=== PATIENT | female | born 1990 | race Native Hawaiian/Other Pacific Islander ===

== ENCOUNTER 2017-11-11 08:16 | Emergency (ER) | payer OTHER ==
[2017-11-11 08:22] VITALS: BMI 21.4
[2017-11-11] MEDS ORDERED: Sodium Chloride 0.9% 1,000 ML IV STA (08:36)
--- NOTE | 2017-11-11 08:39 | ED PDOC ---
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 with pelvic pain like period cramping. Started 2 hrs fishing boat captain. Pt. with no dysuria, weakness, other abd pain, chest pain, dyspnea, back pain, nausea, vomit , diarrhea, or other issues. Past Medical History Reviewed: Nursing Documentation, Vital Signs Vital Signs: Last Vital Signs Temp 97.9 F 11/11/17 08:21 Pulse 69 11/11/17 08:21 Resp BP 111/71 11/11/17 08:21 Pulse Ox 99 11/11/17 08:21 - Medical History PMH: No Chronic Diseases - Surgical History Surgical History: No Surg Hx - Family History Family History: States: Unknown Family Hx - Living Arrangements Living Arrangements: With Family - Home Medications Home Medications: Ambulatory Orders Medication Instructions Recorded Ibuprofen [Motrin] 600 mg PO TID 7 Days tab 11/11/17 - Allergies Allergies/Adverse Reactions: Allergies Allergy/AdvReac Type Severity Reaction Status Date / Time No Known Allergies Allergy Verified 02/03/16 16:17 Review of Systems ROS Statement: Except As Marked, All Systems Reviewed And Found Negative Genitourinary Female: Positive for: Pelvic Pain Physical Exam - Reviewed Nursing Documentation Reviewed: Yes Vital Signs Reviewed: Yes - Physical Exam Appears: Positive for: Non-toxic, No Acute Distress Head Exam: Positive for: ATRAUMATIC, NORMAL INSPECTION, NORMOCEPHALIC Skin: Positive for: Normal Color, Warm, DRY Eye Exam: Positive for: EOMI, Normal appearance, PERRL ENT: Positive for: Normal ENT Inspection Neck: Positive for: Normal, Painless ROM Cardiovascular/Chest: Positive for: Regular Rate, Rhythm Respiratory: Positive for: CNT, Normal Breath Sounds Gastrointestinal/Abdominal: Positive for: Soft, Tenderness (across lower pelvic) Back: Positive for: Normal Inspection. Negative for: L CVA Tenderness, R CVA Tenderness Extremity: Positive for: Normal ROM. Negative for: Tenderness Neurologic/Psych: Positive for: Alert, Oriented - Laboratory Results Result Diagrams: 11/11/17 08:40 11/11/17 08:40 Interpretation Of Abn Labs: no acute Urine POC: Negative Urine dip results: Negative for: Nitrate - ECG O2 Sat by Pulse Oximetry: 99 - Progress ED Course And Treament: Large left ovarian complex cyst with internal echoes and papillary projections measuring 7.4 x 6.6 x 5.6 cm. Malignancy is not excluded. Dr. Graf aware and saw pt. 1500: Dr. Graf discussed with pt. possible surgery today vs. scheduling outpt. Pain controlled. AAOx3. Pt. does not want to get surgery today. She wants to go home. Tolerated po. Fu with pcp. Disposition - Clinical Impression Clinical Impression: Ovarian cyst - Patient ED Disposition Is Patient to be Admitted: No Counseled Patient/Family Regarding: Studies Performed, Diagnosis, Need For Followup, Rx Given - Disposition Referrals: Stewart Graf DO [Staff Provider] - 11/14/17 Disposition: Routine/Home Disposition Time: 15:25 Condition: STABLE Additional Instructions: Return if not better in 3 days. Prescriptions: Ibuprofen [Motrin] 600 mg PO TID 7 Days tab Instructions: Ovarian Cysts Forms: [facility] ([place]), [facility] ED School/Work Excuse
[2017-11-11] MEDS ORDERED: Morphine 4 MG/ML VIAL ONE (09:08)
[2017-11-11 09:21] LABS: BASO # 0.1 K/uL (0.0-0.2); EOS # 0.5 K/uL (0.0-0.7); EOS % 6.5 % (0.0-4.0); LYMPH # 1.5 K/uL (1.0-4.3); LYMPH % 20.1 % (20.0-40.0); MEAN CELL VOLUME 88.4 fl (81.0-99.0); MEAN CORPUSCULAR HEMOGLOBIN 29.9 pg (27.0-31.0); MEAN CORPUSCULAR HGB CONC 33.9 g/dL (33.0-37.0); MEAN PLATELET VOLUME 8.9 fl (7.2-11.7); MONO # 0.4 K/uL (0.0-0.8); MONO % 5.2 % (0.0-10.0); NEUT # 4.9 K/uL (1.8-7.0); NEUT % 67.2 % (50.0-75.0); NRBC % 0.1 % (0.0-0.0); RBC 4.34 Mil/uL (3.80-5.20); RED CELL DISTRIBUTION WIDTH 14.1 % (11.5-14.5); WHITE BLOOD COUNT 7.3 K/uL (4.8-10.8)
[2017-11-11 09:27] LABS: BLOOD UREA NITROGEN 15 mg/dl (7-17); CALCIUM 9.4 mg/dL (8.4-10.2); GFR AFRICAN-AMERICAN > 60; GFR NON-AFRICAN AMERICAN > 60
--- NOTE | 2017-11-11 11:46 | US ---
HISTORY: pelvic pain eval COMPARISON: None available. TECHNIQUE: Grayscale color Doppler and spectral evaluation of the pelvis performed transabdominally FINDINGS: UTERUS: Measures 8.2 x 5.0 x 4.0 cm. Anteverted. Normal in size and appearance. No fibroid or other mass lesion seen. ENDOMETRIUM: Measures 4 mm in diameter. Unremarkable. CERVIX: No cervical abnormality identified. RIGHT OVARY: Measures 2.9 x 3.4 x 2.5 cm. No solid mass. Normal flow. LEFT OVARY: Measures 8.6 x 9.9 x 5.3 cm. Complex cyst with internal echoes and papillary projections measuring 7.4 x 6 6 x 5.6 cm. Normal flow. FREE FLUID: No significant free fluid noted. OTHER FINDINGS: None. IMPRESSION: Large left ovarian complex cyst with internal echoes and papillary projections measuring 7.4 x 6.6 x 5.6 cm. Malignancy is not excluded.
--- NOTE | 2017-11-11 15:12 | CT ---
PROCEDURE: CT Pelvis without contrast HISTORY: ovarian cyst vs. mass COMPARISON: Pelvic ultrasound performed earlier the same day. TECHNIQUE: Contiguous axial images of the pelvis . No intravenous or oral contrast given. Coronal and sagittal reformats generated. Radiation dose: Total exam DLP = 230.3 MGy-cm. This CT exam was performed using one or more of the following dose reduction techniques: Automated exposure control, adjustment of the mA and/or kV according to patient size, and/or use of iterative reconstruction technique. FINDINGS: BLADDER: Unremarkable. No mass. REPRODUCTIVE ORGANS: As seen on ultrasound, there is a complex, heterogeneous structure in the pelvis measuring 7.0 x 6.6 x 8.0 cm that cannot be characterized as a simple cyst. Small amount of free fluid is seen in the recto uterine pouch VISUALIZED BOWEL: Unremarkable. PERITONEUM: Unremarkable, as visualized. No free fluid. No free air. LYMPH NODES: Unremarkable. No enlarged lymph nodes. BONES: No fracture or focal lesion. VASCULATURE: Unremarkable. OTHER FINDINGS: None. IMPRESSION: Large complex heterogeneous pelvic mass measuring 7.0 x 6.6 x 8.0 cm.
--- NOTE | 2017-11-11 15:14 | CP.PCM.CON ---
History of Present Illness - History of Present Illness History of Present Illness: c/o left pelvic pain x 1d. She states that it's on and off. Left side/non radiating. She was given pain meds in ER and feels better Review of Systems - Constitutional Constitutional: absent: Chills, Fever - Gastrointestinal Gastrointestinal: Abdominal Pain. absent: Belching, Bloating, Change in Bowel Habits, Cramping, Diarrhea, Nausea, Vomiting - Genitourinary Genitourinary: absent: Change in Urinary Stream, Difficulty Urinating, Dysuria, Urinary Frequency, Urinary Urgency - Reproductive: Female Reproductive:Female: Normal Menses. absent: Vaginal Discharge Additional comments: LMP 1 week ago Past Patient History - Infectious Disease Hx of Infectious Diseases: None - Past Social History Smoking Status: Never Smoked Chewing Tobacco Use: No Cigar Use: No Alcohol: None Drugs: Denies - PSYCHIATRIC Hx Substance Use: No - SURGICAL HISTORY Hx Surgeries: No Meds Home Medications: Home Medication List Medication Instructions Recorded Confirmed Type Ibuprofen [Motrin] 600 mg PO TID 7 Days tab 11/11/17 Rx Allergies/Adverse Reactions: Allergies Allergy/AdvReac Type Severity Reaction Status Date / Time No Known Allergies Allergy Verified 02/03/16 16:17 Physical Exam - Constitutional Appears: Non-toxic - Head Exam Head Exam: NORMAL INSPECTION - Respiratory Exam Respiratory Exam: NORMAL BREATHING PATTERN - Cardiovascular Exam Cardiovascular Exam: REGULAR RHYTHM - GI/Abdominal Exam GI & Abdominal Exam: Normal Bowel Sounds, Soft, Tenderness. absent: Distended, Guarding, Rebound - Exam Additional comments: Declined - Back Exam Back exam: NORMAL INSPECTION Results - Vital Signs Recent Vital Signs: Last Vital Signs Temp 98.3 F 11/11/17 11:56 Pulse 66 11/11/17 11:56 Resp 16 11/11/17 11:56 BP 112/68 11/11/17 11:56 Pulse Ox 99 11/11/17 12:43 - Labs Result Diagrams: 11/11/17 08:40 11/11/17 08:40 Labs: Laboratory Results - last 24 hr 11/11/17 11/11/17 08:40 08:40 WBC 7.3 RBC 4.34 Hgb 13.0 Hct 38.3 MCV 88.4 MCH 29.9 MCHC 33.9 RDW 14.1 Plt Count 249 MPV 8.9 Neut % (Auto) 67.2 Lymph % (Auto) 20.1 [place] % (Auto) 5.2 Eos % (Auto) 6.5 H Baso % (Auto) 1.0 Neut # (Auto) 4.9 Lymph # (Auto) 1.5 [place] # (Auto) 0.4 Eos # (Auto) 0.5 Baso # (Auto) 0.1 Sodium 139 Potassium 3.6 Chloride 104 Carbon Dioxide 28 Anion Gap 11 BUN 15 Creatinine 0.5 L Est GFR ( Amer) > 60 Est GFR (Non-Af Amer) > 60 Random Glucose 89 Calcium 9.4 Assessment & Plan - Assessment and Plan (Free Text) Assessment: Ovarian cyst - possible endometrioma/dermoid (sono) Pelvic pain - improved with pain meds Plan: condition explained with her friend present. Sonogram rev'd with specialists - Dr Quintero and Dr Schaffer..plan to admit for laparoscopy/possible Da Mikie assisted cystectomy/Salpingo-oophorectomy...possibility of laparotomy discussed. After she and her friend had a discussion, she did not want surgery at this time. She felt better, had an exam tomorrow and wanted to come back as an outpatient (schedule surgery). She understands about pelvic mass/ovarian cyst/ possible torsion and its risks/complications. Advised if increased pain to come back to ER. Copy of radiology studies given to pt. Spoke with Dr Denis...may be discharged home (no evidence of torsion) - Date & Time Date: 11/11/17 Time: 15:30
[2017-11-11 15:49] VITALS: BP 122/75; PULSE 68; RESP 17; TEMP 98; O2SAT 100
== END 2017-11-11 15:40 | disposition home or self-care (01) ==
LOC: H.ER 08:16
DX: N83.209 Unspecified ovarian cyst, unspecified side (principal)
CPT/HCPCS: 72192; 76857; 80048; 81025; 85025; 96361; 96374; 96375; 99285; J1885; J2270; J7030

== ENCOUNTER 2017-11-23 18:00 | Inpatient (IN) | payer OTHER ==
[2017-11-23 18:01] VITALS: BMI 21.4
--- NOTE | 2017-11-23 18:36 | ED PDOC ---
HPI: Female Pain Time Seen by Provider: 11/23/17 18:31 Chief Complaint (Nursing): Female Genitourinary Chief Complaint (Provider): left lower abdominal pain History Per: Patient (26 y/o female here with complaint of intermittent left lower quadrant pain worsening today. Symptoms started 1 week ago. Denies any vomiting/diarrhea/fevers/chills. Has no h/o sx. Was seen last week in ED for similar symptoms by Dr. Graf and Dr. Cornell. Patient was supposed to f/u with Dr. cornell oupatient. Patient spoke with Dr. Cornell today and was advised to come to ED for evaluation. ) Past Medical History Reviewed: Historical Data, Nursing Documentation, Vital Signs Vital Signs: Last Vital Signs Temp 99.2 F 11/23/17 18:16 Pulse 88 11/23/17 18:16 Resp 16 11/23/17 18:16 BP 109/72 11/23/17 18:16 Pulse Ox 99 11/23/17 18:16 - Family History Family History: States: Unknown Family Hx - Home Medications Home Medications: Ambulatory Orders Medication Instructions Recorded Fluticasone Propionate [Flonase] 1 spray INH DAILY 11/23/17 - Allergies Allergies/Adverse Reactions: Allergies Allergy/AdvReac Type Severity Reaction Status Date / Time No Known Allergies Allergy Verified 11/23/17 18:16 Review of Systems ROS Statement: Except As Marked, All Systems Reviewed And Found Negative Physical Exam - Reviewed Nursing Documentation Reviewed: Yes Vital Signs Reviewed: Yes - Physical Exam Appears: Positive for: Well, Non-toxic, No Acute Distress Head Exam: Positive for: ATRAUMATIC, NORMAL INSPECTION, NORMOCEPHALIC Skin: Positive for: Normal Color, Warm, DRY Eye Exam: Positive for: EOMI, Normal appearance, PERRL ENT: Positive for: Normal ENT Inspection Neck: Positive for: Normal, Painless ROM Cardiovascular/Chest: Positive for: Regular Rate, Rhythm Respiratory: Positive for: CNT, Normal Breath Sounds Gastrointestinal/Abdominal: Positive for: Normal Exam, Soft Back: Positive for: Normal Inspection Extremity: Positive for: Normal ROM Neurologic/Psych: Positive for: Alert, Oriented - Laboratory Results Result Diagrams: 11/23/17 18:48 11/23/17 18:48 - ECG O2 Sat by Pulse Oximetry: 99 - Progress ED Course And Treament: Dr cornell spoke with varnish thinner [phone] Patient given morphine 4 mg iv x 1 dose zofran 4 mg iv x 1 dose for pain ADmitted to Dr. Cornell and prepped for OR Disposition - Clinical Impression Clinical Impression: Ovarian cyst - Patient ED Disposition Is Patient to be Admitted: Yes - Disposition Disposition Time: 20:08 Condition: FAIR - Pt Status Changed To: Hospital Disposition Of: Observation
[2017-11-23 18:53] LABS: BASO # 0.1 K/uL (0.0-0.2); BASO % 1.1 % (0.0-2.0); EOS # 0.5 K/uL (0.0-0.7); EOS % 8.2 % (0.0-4.0); HEMOGLOBIN 12.8 g/dL (12.0-16.0); LYMPH # 1.7 K/uL (1.0-4.3); LYMPH % 25.9 % (20.0-40.0); MEAN CELL VOLUME 88.5 fl (81.0-99.0); MEAN CORPUSCULAR HEMOGLOBIN 29.2 pg (27.0-31.0); MEAN PLATELET VOLUME 8.8 fl (7.2-11.7); MONO # 0.5 K/uL (0.0-0.8); MONO % 7.2 % (0.0-10.0); NEUT # 3.7 K/uL (1.8-7.0); NEUT % 57.6 % (50.0-75.0); NRBC % 0.1 % (0.0-0.0); RBC 4.37 Mil/uL (3.80-5.20); RED CELL DISTRIBUTION WIDTH 13.9 % (11.5-14.5); WHITE BLOOD COUNT 6.5 K/uL (4.8-10.8)
[2017-11-23 19:03] LABS: ALB/GLOB RATIO 1.3 (1.0-2.1); ALBUMIN 4.3 g/dL (3.5-5.0); ALT/SGPT 22 U/L (9-52); AST/SGOT 26 U/L (14-36); BLOOD UREA NITROGEN 20 mg/dl (7-17); CALCIUM 9.6 mg/dL (8.4-10.2); GFR AFRICAN-AMERICAN > 60; GFR NON-AFRICAN AMERICAN > 60
[2017-11-23 19:06] LABS: SQUAMOUS EPITHIAL 7 /hpf (0-5); URINE BILIRUBIN NEGATIVE (NEGATIVE); URINE BLOOD NEGATIVE (NEGATIVE); URINE CLARITY SLIGHTY-CLOUDY (Clear); URINE COLOR STRAW (YELLOW); URINE GLUCOSE (UA) NEG (Normal); URINE HYALINE CAST 0-2 /hpf (0-2); URINE LEUKOCYTE ESTERASE SMALL Leu/uL (Negative); URINE PROTEIN NEGATIVE (NEGATIVE); URINE UROBILINOGEN 0.2-1.0 mg/dL (0.2-1.0)
[2017-11-23] MEDS ORDERED: Dextrose 5%/0.45% NS 1,000 ML IV SCH (20:15)
[2017-11-23 21:06] LABS: PARTIAL THROMBOPLASTIN TIME 36.1 Seconds (25.6-37.1); PROTHROMBIN TIME 10.6 Seconds (9.8-13.1)
[2017-11-23] MEDS ORDERED: Peg-Electrolyte Oral Soln 4L (Golytely) PO ONE (21:41)
[2017-11-23] MEDS: Dextrose 5%/0.45% NS 1,000 ML IV SCH (22:06)
[2017-11-24] MEDS: Dextrose 5%/0.45% NS 1,000 ML IV SCH (06:51)
[2017-11-24] MEDS ORDERED: Bupivacaine HCl 0.5% PF (10 ml) Inj ONE (08:05)
[2017-11-24] MEDS ORDERED: Propofol 10 mg/ml Inj (20 ML) ONE (08:24)
[2017-11-24] MEDS ORDERED: Lidocaine 4% (Laryng-O-Jet) Kit MM ONE (08:24)
[2017-11-24] MEDS ORDERED: Midazolam 2 MG/2 ML VIAL ONE (08:24)
[2017-11-24] MEDS ORDERED: Succinylcholine 200 mg/10 ml Inj IV ONE (08:24)
[2017-11-24] MEDS ORDERED: ePHEDrine 50 mg/ml Inj ONE (08:24)
[2017-11-24] MEDS ORDERED: Rocuronium 10 mg/ml (5 ml) ONE (08:24)
[2017-11-24] MEDS ORDERED: Lactated Ringer's 1,000 ML IV ONE ×2 (08:35→08:40)
--- NOTE | 2017-11-24 08:38 | CP.PCM.HP ---
History of Present Illness - History of Present Illness History of Present Illness: 26 yo g0po presenting to the emergency room with severe abdominal pain , nausea. The patient had a prior admission 10 days prior for similar symprtoms. At the time a large pelvic mass was diagnosed by ct scan and ultrasound. A repeat ultrasound upon admission confirmed presence of the mass.At the time the patient was seen in the emergency room and admitted overnight. She was subsequently discharged home. Yesterday the patient started experiencing increasing pain and presented to the emergency room. Present on Admission - Present on Admission Any Indicators Present on Admission: No History of DVT/PE: No History of Uncontrolled Diabetes: No Urinary Catheter: No Decubitus Ulcer Present: No Review of Systems - Review of Systems Systems not reviewed;Unavailable: Acuity of Condition (severe) - Constitutional Constitutional: As Per HPI - EENT Eyes: absent: As Per HPI, Blind Spots, Blurred Vision, Change in Vision, Decreased Night Vision, Diplopia, Discharge, Dry Eye, Exophthalmos, Floaters, Irritation, Itchy Eyes, Loss of Peripheral Vision, Pain, Photophobia, Requires Corrective Lenses, Sees Flashes, Spots in Vision, Tunnel Vision, Other Visual Disturbances, Loss of Vision, Other Ears: absent: As Per HPI, Decreased Hearing, Ear Discharge, Ear Pain, Tinnitus, Abnormal Hearing, Disequilibrium, Dizziness, Other Nose/Mouth/Throat: absent: As Per HPI, Epistaxis, Nasal Congestion, Nasal Discharge, Nasal Obstruction, Nasal Trauma, Nose Pain, Post Nasal Drip, Sinus Pain, Sinus Pressure, Bleeding Gums, Change in Voice, Dental Pain, Dry Mouth, Dysphagia, Halitosis, Hoarsness, Lip Swelling, Mouth Lesions, Mouth Pain, Odynophagia, Sore Throat, Throat Swelling, Tongue Swelling, Facial Pain, Neck Pain, Neck Mass, Other - Breasts Breasts: absent: As Per HPI, Change in Shape, Mass, Pain, Nipple Discharge, Nipple Inversion, Skin Changes, Swelling, Other - Cardiovascular Cardiovascular: absent: As Per HPI, Acrocyanosis, Chest Pain, Chest Pain at Rest , Chest Pain with Activity, Claudication, Diaphoresis, Dyspnea, Dyspnea on Exertion, Edema, Irregular Heart Rhythm, Pain Radiating to Arm/Neck/Jaw, Leg Edema, Leg Ulcers, Lightheadedness, Orthopnea, Palpitations, Paroxysmal Nocturnal Dyspnea, Pedal Edema, Radiating Pain, Rapid Heart Rate, Slow Heart Rate, Syncope, Other - Respiratory Respiratory: absent: As Per HPI, Cough, Dyspnea, Hemoptysis, Dyspnea on Exertion , Wheezing, Snoring, Stridor, Pain on Inspiration, Chest Congestion, Excessive Mucous Production, Change in Mucous Color, Pain with Coughing, Other - Gastrointestinal Gastrointestinal: Abdominal Pain, Bloating, Nausea - Genitourinary Genitourinary: Flank Pain, Urinary Frequency - Reproductive: Female Reproductive:Female: Heavy Menses, Dysmenorrhea, Pelvic Pain - Menstruation Menstruation: Dysmenorrhea - Musculoskeletal Musculoskeletal: absent: As Per HPI, Abnormal Gait, Arthralgias, Atrophy, Back Pain, Deformity, Joint Swelling, Limited Range of Motion, Loss of Height, Muscle Cramps, Muscle Weakness, Myalgias, Neck Pain, Numbness, Radiating Pain into Limb, Stiffness, Tingling, Other - Integumentary Integumentary: absent: As Per HPI, Acne, Alopecia, Bleeding Lesions, Change in Hair, Change in Nails, Change in Pigmentation, Changing Lesions, Dry Skin, Erythema, Furuncle, Hirsutism, Lesions, New Lesions, Non-Healing Lesions, Photosensitivity, Pruritus, Rash, Skin Pain, Skin Ulcer, Sores, Striae, Swelling , Unusual Bruising, Wounds, Jaundice, Other - Neurological Neurological: absent: As Per HPI, Abnormal Gait, Abnormal Hearing, Abnormal Movements, Abnormal Speech, Behavioral Changes, Burning Sensations, Confusion, Convulsions, Disequilibrium, Dizziness, Numbness, Focal Weakness, Frequent Falls , Headaches, Lack of Coordination, Loss of Vision, Memory Loss, Paresthesias, Radicular Pain, Restless Legs, Sensory Deficit, Syncope, Tingling, Tremor, Vertigo, Weakness, Other Visual Disturbances, Other - Psychiatric Psychiatric: absent: As Per HPI, Abnormal Sleep Pattern, Anhedonia, Anxiety, Auditory Hallucinations, Behavioral Changes, Change in Appetite, Change in Libido, Confusion, Depression, Difficulty Concentrating, Hallucinations, Homicidal Ideation, Hopelessness, Irritability, Memory Loss, Mood Swings, Panic Attacks, Paranoia, Suicidal Ideation, Visual Hallucinations, Tactile Hallucinations, Other - Endocrine Endocrine: absent: As Per HPI, Change in Body Appearance, Change in Libido, Cold Intolorance, Deepening of Voice, Excessive Sweating, Fatigue, Flushing, Heat Intolorance, Increase in Ring/Shoe/Hat Size, Palpitations, Polydipsia, Polyphagia, Polyuria, Other - Hematologic/Lymphatic Hematologic: absent: As Per HPI, Easy Bleeding, Easy Bruising, Lymphadenopathy, Other Past Patient History - Infectious Disease Hx of Infectious Diseases: None - Tetanus Immunizations Tetanus Immunization: Unknown, Up to Date, >10 years Ago, Never Received Tetanus Vaccine, Allergy to Tetanus Vaccine, Refused - Past Medical History & Family History Past Medical History?: No - Past Social History Smoking Status: Never Smoked - CARDIAC Hx Cardiac Disorders: No Hx Angina: No Hx Atrial Fibrillation: No Hx Cardia Arrhythmia: No Hx Circulatory Problems: No Hx Congestive Heart Failure: No Hx Heart Attack: No Hx Heart Murmur: No Hx Heart Transplant: No Hx Hypercholesterolemia: No Hx Hypertension: No Hx Hypotension: No Hx Internal Defibrillator: No Hx Mitral Valve Prolapse: No Hx Pacemaker: No Hx Peripheral Edema: No Hx Peripheral Vascular Disease: No - PULMONARY Hx Respiratory Disorders: No - HEENT Hx HEENT Problems: No - RENAL Hx Chronic Kidney Disease: No - ENDOCRINE/METABOLIC Hx Endocrine Disorders: No - HEMATOLOGICAL/ONCOLOGICAL Hx Blood Disorders: No Hx AIDS: No Hx Human Immunodeficiency Virus (HIV): No - INTEGUMENTARY Hx Dermatological Problems: No - MUSCULOSKELETAL/RHEUMATOLOGICAL Hx Musculoskeletal Disorders: No Hx Falls: No - GASTROINTESTINAL Hx Gastrointestinal Disorders: No - GENITOURINARY/GYNECOLOGICAL Hx Genitourinary Disorders: No Hx Sexually Transmitted Disorders: Yes : 0 - PSYCHIATRIC Hx Psychophysiologic Disorder: No Hx Substance Use: No - SURGICAL HISTORY Hx Surgeries: No Other/Comment: polyps removed in the nose - ANESTHESIA Hx Anesthesia: No Hx Anesthesia Reactions: No Has any member of the family had a problem w/ anesthesia?: No Meds Allergies/Adverse Reactions: Allergies Allergy/AdvReac Type Severity Reaction Status Date / Time No Known Allergies Allergy Verified 11/23/17 18:16 Physical Exam - Constitutional Appears: In Acute Distress - Head Exam Head Exam: ATRAUMATIC, NORMAL INSPECTION, NORMOCEPHALIC - Eye Exam Eye Exam: EOMI, Normal appearance, PERRL Pupil Exam: absent: Fixed, Irregular, Miosis, Mydriatic, NORMAL ACCOMODATION, PERRL, Unequal - ENT Exam ENT Exam: absent: Mucous Membranes Dry, Mucous Membranes Moist, Normal Exam, Normal External Ear Exam, Normal Oropharynx, TM's Normal Bilaterally - Neck Exam Neck exam: Positive for: Normal Inspection - Respiratory Exam Respiratory Exam: Clear to Auscultation Bilateral, NORMAL BREATHING PATTERN - Cardiovascular Exam Cardiovascular Exam: REGULAR RHYTHM - GI/Abdominal Exam GI & Abdominal Exam: Tenderness Additional comments: guarding - Exam Exam: absent: Circumcision, NORMAL INSPECTION, Scrotal Swelling, Testicular Tenderness, Uretheral Discharge, Testicular Vertical Lie, Bladder Distension External exam: absent: Ecchymosis, Erythema, Lacerations, Lesions, NORMAL EXTERNAL EXAM, Swelling Speculum exam: absent: Cervical Discharge, Erythema, Foreign Body, Laceration, NORMAL SPECULUM EXAM, Tissue, Vaginal Bleeding, Vaginal Discharge Bimanual exam: Adenexal Mass, Uterine Tenderness Results - Vital Signs Recent Vital Signs: Last Vital Signs Temp 98.2 F 11/24/17 08:03 Pulse 69 11/24/17 08:03 Resp 18 11/24/17 08:03 BP 107/63 11/24/17 08:03 Pulse Ox 99 11/24/17 08:03 - Labs Result Diagrams: 11/23/17 18:48 11/23/17 18:48 Labs: Laboratory Results - last 24 hr 11/23/17 11/23/17 11/23/17 18:48 18:48 18:48 WBC 6.5 RBC 4.37 Hgb 12.8 Hct 38.7 MCV 88.5 MCH 29.2 MCHC 33.0 RDW 13.9 Plt Count 219 MPV 8.8 Neut % (Auto) 57.6 Lymph % (Auto) 25.9 [place] % (Auto) 7.2 Eos % (Auto) 8.2 H Baso % (Auto) 1.1 Neut # (Auto) 3.7 Lymph # (Auto) 1.7 [place] # (Auto) 0.5 Eos # (Auto) 0.5 Baso # (Auto) 0.1 PT INR APTT Sodium 141 Potassium 3.9 Chloride 106 Carbon Dioxide 25 Anion Gap 14 BUN 20 H Creatinine 0.5 L Est GFR ( Amer) > 60 Est GFR (Non-Af Amer) > 60 Random Glucose 89 Calcium 9.6 Total Bilirubin 0.4 AST 26 ALT 22 Alkaline Phosphatase 52 Total Protein 7.5 Albumin 4.3 Globulin 3.2 Albumin/Globulin Ratio 1.3 Urine Color Straw Urine Clarity Slighty-cloudy Urine pH 7.0 Ur Specific [place] 1.011 Urine Protein Negative Urine Glucose (UA) Neg Urine Ketones Negative Urine Blood Negative Urine Nitrate Negative Urine Bilirubin Negative Urine Urobilinogen 0.2-1.0 Ur Leukocyte Esterase Small Urine RBC (Auto) 1 Urine Microscopic WBC 3 Ur Squamous Epith Cells 7 H Hyaline Casts 0-2 Blood Type Antibody Screen BBK History Checked 11/23/17 11/23/17 20:43 20:43 WBC RBC Hgb Hct MCV MCH MCHC RDW Plt Count MPV Neut % (Auto) Lymph % (Auto) [place] % (Auto) Eos % (Auto) Baso % (Auto) Neut # (Auto) Lymph # (Auto) [place] # (Auto) Eos # (Auto) Baso # (Auto) PT 10.6 INR 1.0 APTT 36.1 Sodium Potassium Chloride Carbon Dioxide Anion Gap BUN Creatinine Est GFR ( Amer) Est GFR (Non-Af Amer) Random Glucose Calcium Total Bilirubin AST ALT Alkaline Phosphatase Total Protein Albumin Globulin Albumin/Globulin Ratio Urine Color Urine Clarity Urine pH Ur Specific [place] Urine Protein Urine Glucose (UA) Urine Ketones Urine Blood Urine Nitrate Urine Bilirubin Urine Urobilinogen Ur Leukocyte Esterase Urine RBC (Auto) Urine Microscopic WBC Ur Squamous Epith Cells Hyaline Casts Blood Type O POSITIVE Antibody Screen Negative BBK History Checked No verified bt Assessment & Plan - Assessment and Plan (Free Text) Assessment: acute abdominal pain,bladder pain, large pelvic mass, rule out ovarian endometrioma, rule out ovarian torsion , rule out cyst rupture, rule out bladder endometriosis, Plan: emergency exploratory laparoscopy , possible ovarian cystectomy possible bowel surgery , general surgical surgical consult - Date & Time Date: 11/24/17 Time: 06:00 Decision To Admit - Pt Status Changed To: Hospital Disposition Of: Inpatient - Admit Certification Admit to Inpatient:: After my assessment, the patient will require hospitalization for at least two midnights. This is because of the severity of symptoms shown, intensity of services needed, and/or the medical risk in this patient being treated as an outpatient. - . Bed Request Type: Med/Surg Admitting Physician: Dimitris Quintero
[2017-11-24] MEDS ORDERED: Dexamethasone 4 mg/1 ml ONE (09:05)
[2017-11-24] MEDS ORDERED: Desflurane Inhalation Anesthetic Liq (240 ml) ONE (09:52)
[2017-11-24] MEDS ORDERED: Neostigmine 1:1000 (1 mg/ml) Inj ONE (10:39)
--- NOTE | 2017-11-24 10:50 | US ---
HISTORY: R/O OVARIAN TORSION/RUPTURE LEFT ADNEXA LMP 10/27/2017. COMPARISON: 11/11/2017. TECHNIQUE: Transabdominal only. Real-time technique with 2D, duplex and color Doppler FINDINGS: UTERUS: Measures 3.5 x 5 x 8.1 cm. Normal in size and appearance. No fibroid or other mass lesion seen. ENDOMETRIUM: Measures twelve mm in diameter. Unremarkable. CERVIX: No cervical abnormality identified. RIGHT OVARY: Measures 2.5 x 3.6 x 4.3 cm. No solid mass. Normal flow. Multiple subcentimeter follicles. LEFT OVARY: Measures 6 x 7.8 x 8.7 cm. No solid mass. Normal flow. Complex cyst/ endometrioma unchanged compared to the prior study. FREE FLUID: Trace free fluid identified in the pelvis/cul de sac. OTHER FINDINGS: None. IMPRESSION: Complex mass left adnexa unchanged compared to the prior study 11/11/2017. Concordant results (preliminary interpretation) provided by [facility]. Procedure Completed: 19:33 November 23, 2017. Preliminary ([facility]) Report: Dictated and Authenticated: 21:14. Final Interpretation: 10:48.
[2017-11-24] MEDS: HYDROmorphone 0.5 mg/0.5 ml ISec IVP PRN ×4 (11:38→12:33)
[2017-11-24] MEDS: Lactated Ringer's 1,000 ML IV SCH ×2 (14:24→21:19)
--- NOTE | 2017-11-24 15:05 | PCM.OP ---
Operative Report - Operative Report Date of Surgery/Procedure: 11/24/17 Time of Surgery/Procedure: 08:00 Surgeon: Dr. Nasim Schaffer Dry Kiln Operator: Dr. Dimitris Quintero Anesthesia/Sedation: general/Dr. Brown Pre-Operative Diagnosis: abdominal pain and large ovarian tumor Post-Operative Diagnosis: same Indication for Surgery: as above Operative Findings: as above Procedure/Operation Description: 1-Appendectomy. Brief History: This 26 year old woman was brought to the operatoing room by Dr. Quintero for a large ovarian tumor and abdominal pain. She was admitted through the ED with unrelenting abdominal pain and was admitted approximately one week before with similar symptoms and findings. She was discharged and now retruns with exacerbaiting symptoms. Dr. Quintero requested intraoperative cosultation for the appendix. Description of the Procedure: The patient had already been brought to the operating room by Dr. Quintero (separate dictation Dr. Quintero). After taking control of the robotic console the appednix was retracted anteriorly and with the monopolar devise the messentery was dessicated to the level of the base. Using three endoloops the appendix was ligated and divided and sent to pathology as a separate specimen. The area was examined and hemostasis was deemed adeqaute. The operation was tehn turned over to Dr. Quintero (separate dictation). Estimated Blood Loss: 2 cc Complications: none Discharge & Condition: stable
[2017-11-24] MEDS ORDERED: Oxycodone/Acetaminophen 5/325 mg Tab PO PRN (20:56)
[2017-11-25] MEDS: Lactated Ringer's 1,000 ML IV SCH (04:12)
--- NOTE | 2017-11-25 08:15 | OP ---
PROCEDURE DATE: 11/24/17 SURGEON: Dimitris Quintero MD STATISTICAL GENETICIST: Nasim Schaffer MD, from General Surgery. PREOPERATIVE DIAGNOSES: 1. Pelvic pain. 2. Abdominal pain, acute. 3. Pelvic mass, rule out pelvic endometrioma vs dermoid cyst vs ovarian tumor 4. Rule out ovarian torsion. 5. Rule out subacute appendicitis. POSTOPERATIVE DIAGNOSES: 1. Pelvic pain. 2. Abdominal pain, acute. 3. Left ovarian tumor, mucinous.. 4. Intermittent ovarian torsion. 5. Subacute appendicitis. PROCEDURE PERFORMED: 1. Exam under anesthesia. 2. Cystoscopy with bilateral ureteral injection of dye, 3. Robotic da Mikie laparoscopy. 4. Robotic left oophorectomy and left salpingectomy; 5. to be dictated separately by Dr. Schaffer, a right appendectomy. COMPLICATIONS: None. ESTIMATED BLOOD LOSS: Minimal. ANESTHESIA: General endotracheal performed by . SPECIMENS: Ovary sent to pathology. 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 INDICATION FOR PROCEDURE: The patient is a 26-year-old newly on her second admission to the emergency room for abdominal pain. She had a prior assessment about 10 days prior to the current admission. She presented with similar symptoms. She had a prior CT scan and was evaluated by ultrasonography confirming the presence of a large ovarian mass on the left hand side about 7 cm in size. The ultrasound report had ap esumptive diagnosis had findings suggestive of endometrioma and possibly ovarian torsion. The patient was counseled with regards to the risks and benefits of the procedure. Since she is very young, she expressed the desire for ovarian preservation if possible. She understood the risks and benefits, and she agreed to an oophorectomy should that present to be necessary. She signed the consent and was taken to the OR. DESCRIPTION OF PROCEDURE: After adequate anesthesia was obtained, the patient was placed in the dorsal lithotomy position. She was prepped and draped, and the surgeons gowned and gloved. Given the presumptive diagnosis of extensive endometriosis, a cystoscopy was performed to confirm presence of endometriosis in the bladder. The bladder appeared to be free of any lesions. A 5 mL of IC-green were injected on each ureter, on the left and the right side in order to facilitate identification of the ureter with the da Dejon robot. At this point, after regowning and regloving, the attention was on the abdomen, where an open laparoscopy was performed, making an incision below the umbilicus and incising the fascia and entered the peritoneum in a blunt fashion. The catheter was inserted and under direct visualization, three additional ports were inserted, left upper quadrant, left mid quadrant, and right upper quadrant. The da Mikie Xi robot was then docked, and the procedure was started. Immediately the upper abdomen was examined, appeared to be free of any lesions. The liver was free of any lesions. The right and left paracolic gutters were free of any lesions. The colon and the small bowel appeared to be free of any lesions. The omentum was inspected, appeared to be free of any lesions. After examining the ovary, it was determined that it was too large to fit insinde an endoscopic bag. A small incision was made on the to of the cyst and the suction was inserted and the ovary was emptied of its content. There was no spillage at all of the ovarin content. Once the ovary was slightly deflated, Endoloop was placed around the defect which was sealed successfully. At this point, the left infundibulopelvic ligament was identified, coagulated and cut; and the left utero-ovarian ligament was identified, coagulated and cut incorporating the left fallopian tube. The cyst was then inserted into the Endobag and placed into the pelvis inside the bag. At this point, attention was on the appendix. The appendix did not have any visible lesion on the surface, but given the diagnosis, General Surgery was called in to perform an appendectomy, which will be dictated separately by Dr. Schaffer. At this point, the rest of the pelvis was examined, appearing to be completely clear. No spillage at all of the cyst content happened at all. At this point, the da Mikie robot was undocked, and the umbilical incision was extended, and the cyst was removed via the bag to the abdominal incision. At this point, the cyst was opened and a sample of the cyst was sent to pathology for frozen section which returned a mucinous borderline tumor. At this point, the incision was closed with 0 PDS for the fascia, 4-0 Monocryl for the skin. At this point, the patient was woken up and taken to recovery room in excellent condition. Dimitris Quintero MD [facility] # [id number] GIOVANNA
[2017-11-25 20:29] VITALS: BP 112/64; PULSE 86; RESP 18; TEMP 99.6
[2017-11-26 03:30] VITALS: O2SAT 99
== END 2017-11-25 21:43 | disposition home or self-care (01) | DRG 742 ==
LOC: H.ER 18:00 → H.ERHOLD 20:05 → H.PEDS 21:09
PROVIDERS: ADMIT Obstetrics & Gynecology Reproductive Endocrinology; ATTEND Obstetrics & Gynecology Reproductive Endocrinology
PROC: 8E0W0CZ Robotic Assisted Procedure of Trunk Region, Open Approach (ICD-10-PCS; 2017-11-24)
PROC: 0UT10ZZ Resection of Left Ovary, Open Approach (ICD-10-PCS; principal; 2017-11-24 13:30)
PROC: 0UT60ZZ Resection of Left Fallopian Tube, Open Approach (ICD-10-PCS; 2017-11-24 13:30)
PROC: 0DTJ0ZZ Resection of Appendix, Open Approach (ICD-10-PCS; 2017-11-24 13:30)
DX: D27.1 Benign neoplasm of left ovary (principal); N83.512 Torsion of left ovary and ovarian pedicle; K36 Other appendicitis

== ENCOUNTER 2017-12-02 22:27 | Inpatient (IN) | payer OTHER ==
[2017-12-02 22:27] VITALS: BMI 21.4
[2017-12-02] MEDS ORDERED: Iohexol 240 (50 ml) PO STA (22:55)
[2017-12-02] MEDS ORDERED: Sodium Chloride 0.9% 1,000 ML IV STA (22:56)
[2017-12-02] MEDS ORDERED: Piperacillin/Tazobact 3.375 GM in Sodium Chloride 0.9% 100 ML IVPB STA (23:18)
[2017-12-02] MEDS ORDERED: Iohexol 240 (50 ml) ONE (23:25)
--- NOTE | 2017-12-02 23:41 | ED PDOC ---
HPI: General Adult Time Seen by Provider: 12/02/17 22:53 Chief Complaint (Nursing): Fever Chief Complaint (Provider): Fever History Per: Patient History/Exam Limitations: no limitations Onset/Duration Of Symptoms: Days (x 3) Current Symptoms Are (Timing): Still Present Additional Complaint(s): 26 year old [place] female presents to the ED with fever and abdominal pain for the last 3 days. She complains of pain and tenderness to umbilical wound associated with redness. Her fever's maximum temperature was 102 degrees. Patient reports she had a right sided oopherectomy and removal of a dermoid tumor, one that was discovered during a recent visit to the ED, on November [address] Quintero and Dr. Schaffer. Patient has been taking Tylenol and Motrin with some relief. She denies drainage and other medical complaints. PMD: Dr. Quintero Past Medical History Reviewed: Historical Data, Nursing Documentation, Vital Signs Vital Signs: Last Vital Signs Temp 99.2 F 12/03/17 18:40 Pulse 118 H 12/03/17 16:40 Resp 18 12/03/17 16:40 BP 102/68 12/03/17 16:40 Pulse Ox 100 12/03/17 16:40 - Medical History PMH: Sexually Transmitted Disease Denies: Atrial Fibrillation, Cardia Arrhythmia, CHF, HIV, HTN, Hypercholesterolemia, Mitral Valve Prolapse, Peripheral Edema, Chronic Kidney Disease - Surgical History Surgical History: No Surg Hx Denies: Pacemaker - Family History Family History: States: Unknown Family Hx - Home Medications Home Medications: Ambulatory Orders Medication Instructions Recorded Ciprofloxacin [Cipro] 250 mg PO BID 12/03/17 Ibuprofen [Motrin Tab] 600 mg PO Q8 PRN 12/03/17 - Allergies Allergies/Adverse Reactions: Allergies Allergy/AdvReac Type Severity Reaction Status Date / Time No Known Allergies Allergy Verified 12/02/17 22:47 Review of Systems ROS Statement: Except As Marked, All Systems Reviewed And Found Negative Constitutional: Positive for: Fever Gastrointestinal: Positive for: Abdominal Pain Physical Exam - Reviewed Nursing Documentation Reviewed: Yes Vital Signs Reviewed: Yes - Physical Exam Appears: Positive for: Non-toxic, No Acute Distress Head Exam: Positive for: ATRAUMATIC, NORMAL INSPECTION, NORMOCEPHALIC Skin: Positive for: Normal Color, Warm, Dry Eye Exam: Positive for: EOMI, Normal appearance, PERRL Neck: Positive for: Normal, Painless ROM, Supple Cardiovascular/Chest: Positive for: Tachycardia, Other (regular rhythm ) Respiratory: Positive for: Normal Breath Sounds. Negative for: Respiratory Distress Gastrointestinal/Abdominal: Positive for: Other (erythematous umbilical wound indurated and tender to touch. ) Neurologic/Psych: Positive for: Alert, Oriented. Negative for: Motor/Sensory Deficits - Laboratory Results Result Diagrams: 12/03/17 06:26 12/02/17 23:45 - ECG O2 Sat by Pulse Oximetry: 98 (RA) Pulse Ox Interpretation: Normal Medical Decision Making Medical Decision Making: Time 22:58 Impression: 26 year old [place] female with fever and abdominal pain in post operative setting Initial Plan: --CT --CMP --Surg consult --urine dip --Urine preg --CBC --Omnipaque 50 ml PO --Ns IV --Piperacillin in NS 100 ml IVPB --Blood cx --UA 0520 CT FINDINGS: Lung bases: The visualized portions of the lung bases are normal. ABDOMEN: Liver: The liver is normal in appearance. Gallbladder and bile ducts: The gallbladder is contracted but otherwise normal. No calcified stones. No ductal dilation. Pancreas: The pancreas is normal. No ductal dilation. Spleen: The spleen is normal. wel: Moderate stool noted throughout the colon. No obstruction. No mucosal thickening. PELVIS: Appendix: A rim-enhancing fluid collection adjacent to the cecum measuring 3.4 cm x 1.8 cm x 1.7 cm concerning for acute appendicitis with periappendiceal abscess. Bladder: The bladder is normal. Reproductive: Mildly thickened appearance of the endometrial canal with internal fluid. Probable corpus luteum cyst within the right ovary. Normal appearance of the left adnexa. ABDOMEN and PELVIS: Intraperitoneal space: No pneumoperitoneum. Periappendiceal fluid collection as described above. Bones/joints: Normal appearance of the osseous structures. No acute osseous abnormality. No dislocation. Soft tissues: Subcutaneous periumbilical fluid collection measuring 3.9 cm x 2.3 cm x 3.3 cm. Left mid abdominal ventral abdominal defect which extends to the ventral abdominal wall with intervening subcutaneous and intramuscular gas extending to the level of the pubic symphysis , and interposed between the left external and internal oblique abdominal muscles. Vasculature: Normal. No abdominal aortic aneurysm. Lymph nodes: Enlarged right lower quadrant lymph nodes. IMPRESSION: 1. Findings concerning for acute appendicitis with periappendiceal abscess measuring 3.4 cm x 1.7 cm x 1.8 cm. Recommend surgical consultation. 2. Subcutaneous periumbilical fluid collection measuring up to 3.9 cm which could represent a postoperative seroma, hematoma, or evolving abscess. 3. Additional left ventral abdominal skin defect with from underlying subcutaneous emphysema extending to the anterior bowel wall with diffuse subcutaneous and intermuscular gas superficial to and interposed in between the left abdominal oblique musculature extending to the level of the pubic symphysis. 4. The right ovary appears to be present with a probable internal corpus luteum cyst. 5. Indeterminate thickening of the endometrial canal with internal fluid. Correlate with phase of menstruation. Discussed case with surgical scrub tech, Dr Emerson who has admitted patient after d/w Dr. Schaffer. Diagnosis is post op intra-abdominal abscess ---- Scribe Attestation: Documented by Alize Tovar, acting as a scribe for Luis A Coats MD Provider Scribe Attestation: All medical record entries made by the Scribe were at my direction and personally dictated by me. I have reviewed the chart and agree that the record accurately reflects my personal performance of the history, physical exam, medical decision making, and the department course for this patient. I have also personally directed, reviewed, and agree with the discharge instructions and disposition. Disposition - Clinical Impression Clinical Impression: Postoperative intra-abdominal abscess - Patient ED Disposition Is Patient to be Admitted: Yes Discussed With : Nasim Schaffer Counseled Patient/Family Regarding: Studies Performed, Diagnosis - Disposition Disposition Time: 05:00 Condition: FAIR - Pt Status Changed To: Hospital Disposition Of: Inpatient - Admit Certification Admit to Inpatient:: After my assessment, the patient will require hospitalization for at least two midnights. This is because of the severity of symptoms shown, intensity of services needed, and/or the medical risk in this patient being treated as an outpatient.
[2017-12-02 23:49] LABS: BASO % 0.3 % (0.0-2.0); EOS # 0.3 K/uL (0.0-0.7); EOS % 2.3 % (0.0-4.0); HEMOGLOBIN 11.2 g/dL (12.0-16.0); LYMPH # 0.9 K/uL (1.0-4.3); MEAN CELL VOLUME 87.9 fl (81.0-99.0); MEAN PLATELET VOLUME 8.6 fl (7.2-11.7); MONO # 1.3 K/uL (0.0-0.8); MONO % 8.3 % (0.0-10.0); NEUT # 12.6 K/uL (1.8-7.0); NEUT % 83.1 % (50.0-75.0); PLATELET COUNT 303 K/uL (130-400); RBC 3.87 Mil/uL (3.80-5.20); RED CELL DISTRIBUTION WIDTH 13.5 % (11.5-14.5); WHITE BLOOD COUNT 15.2 K/uL (4.8-10.8)
[2017-12-02] MEDS ORDERED: Piperacillin/Tazobact 3.375 gm Inj IVPB ONE (23:53)
[2017-12-02 23:57] LABS: ALB/GLOB RATIO 1.1 (1.0-2.1); ALBUMIN 3.9 g/dL (3.5-5.0); GFR AFRICAN-AMERICAN > 60; GFR NON-AFRICAN AMERICAN > 60
[2017-12-03 00:01] LABS: ALT/SGPT 18 U/L (9-52); AST/SGOT 24 U/L (14-36); BLOOD UREA NITROGEN 16 mg/dl (7-17); SQUAMOUS EPITHIAL 1 /hpf (0-5); URINE BACTERIA RARE (<OCC); URINE BILIRUBIN NEGATIVE (NEGATIVE); URINE BLOOD NEGATIVE (NEGATIVE); URINE CLARITY SLIGHTY-CLOUDY (Clear); URINE COLOR STRAW (YELLOW); URINE GLUCOSE (UA) NEG (Normal); URINE LEUKOCYTE ESTERASE MOD Leu/uL (Negative); URINE PROTEIN NEGATIVE (NEGATIVE); URINE UROBILINOGEN 0.2-1.0 mg/dL (0.2-1.0)
[2017-12-03] MEDS ORDERED: Sodium Chloride 0.9% 50 ML IV ONE (02:50)
[2017-12-03] MEDS ORDERED: Iohexol 300 100 ML IJ ONE (02:50)
[2017-12-03 03:24] LABS: BANDS 3 % (0-2); EOSINOPHIL 1 % (0-7); LYMPHOCYTE 10 % (20-50); MONOCYTE 7 % (0-10); NEUTROPHIL 79 % (42-75); TOTAL CELLS COUNTED 100
[2017-12-03 03:25] LABS: PLATELET ESTIMATE NORMAL (NORMAL)
[2017-12-03] MEDS ORDERED: Oxycodone/Acetaminophen 5/325 mg Tab PO PRN (05:51)
[2017-12-03] MEDS ORDERED: Sodium Chloride 0.9% 1,000 ML IV SCH ×2 (06:00→19:45)
[2017-12-03] MEDS ORDERED: Piperacillin/Tazobact 3.375 gm Inj IVPB ONE (06:07)
--- NOTE | 2017-12-03 06:12 | CP.PCM.HP ---
History of Present Illness - History of Present Illness History of Present Illness: Surgery - Dr. Schaffer 26yo F w/ hx of Robotic Left salpingectomy, oopherectomy, and appendectomy on 11/24, presenting with fevers and abdominal pain x3 days. Pt states that she has been having fevers at home for the past 3 days, the highest of which she measured was 102F. She also complains of mild-moderate abdominal pain located in the periumbilical region near her umbilical port incision. She denies any aggravating or alleviating factors. Her last BM was yesterday and was normal. Pt denies any other symptoms including Chills/SOB/Cough/Chest pain/Diarrhea/ Constipation/Dysuria/hematuria. PMH: L ovarian mass PSH: Davinci Let salpingoopherectomy and appendectomy NKDA Present on Admission - Present on Admission Any Indicators Present on Admission: No Review of Systems - Review of Systems All systems: reviewed and no additional remarkable complaints except (as per HPI ) Past Patient History - Infectious Disease Hx of Infectious Diseases: None - Tetanus Immunizations Tetanus Immunization: Unknown, Up to Date, >10 years Ago, Never Received Tetanus Vaccine, Allergy to Tetanus Vaccine, Refused - Past Medical History & Family History Past Medical History?: No - Past Social History Smoking Status: Never Smoked - CARDIAC Hx Atrial Fibrillation: No Hx Cardia Arrhythmia: No Hx Congestive Heart Failure: No Hx Hypercholesterolemia: No Hx Hypertension: No Hx Mitral Valve Prolapse: No Hx Pacemaker: No Hx Peripheral Edema: No - PULMONARY Hx Respiratory Disorders: No - NEUROLOGICAL Hx Neurological Disorder: No - HEENT Hx HEENT Problems: No - RENAL Hx Chronic Kidney Disease: No - ENDOCRINE/METABOLIC Hx Endocrine Disorders: No - HEMATOLOGICAL/ONCOLOGICAL Hx Human Immunodeficiency Virus (HIV): No - INTEGUMENTARY Hx Dermatological Problems: No - MUSCULOSKELETAL/RHEUMATOLOGICAL Hx Musculoskeletal Disorders: No Hx Falls: No - GASTROINTESTINAL Hx Gastrointestinal Disorders: No - GENITOURINARY/GYNECOLOGICAL Hx Sexually Transmitted Disorders: Yes - PSYCHIATRIC Hx Psychophysiologic Disorder: No Hx Substance Use: No - SURGICAL HISTORY Hx Surgeries: No Other/Comment: polyps removed in the nose - ANESTHESIA Hx Anesthesia: No Hx Anesthesia Reactions: No Meds Allergies/Adverse Reactions: Allergies Allergy/AdvReac Type Severity Reaction Status Date / Time No Known Allergies Allergy Verified 12/02/17 22:47 Physical Exam - Constitutional Appears: Well, No Acute Distress - Head Exam Head Exam: ATRAUMATIC, NORMAL INSPECTION, NORMOCEPHALIC - Eye Exam Eye Exam: Normal appearance - Respiratory Exam Respiratory Exam: NORMAL BREATHING PATTERN. absent: Respiratory Distress - Cardiovascular Exam Cardiovascular Exam: REGULAR RHYTHM - GI/Abdominal Exam GI & Abdominal Exam: Firm (firm area around umbilical port site with mild erythema), Soft, Tenderness (ttp at umbilical incision). absent: Guarding, Hernia, Rebound, Rigid - Neurological Exam Neurological exam: Alert, Oriented x3 - Psychiatric Exam Psychiatric exam: Normal Affect, Normal Mood - Skin Skin Exam: Dry, Intact Results - Vital Signs Recent Vital Signs: Last Vital Signs Temp 98 F 12/03/17 04:36 Pulse 93 H 12/03/17 04:36 Resp 18 12/03/17 04:36 BP 94/58 L 12/03/17 04:36 Pulse Ox 98 12/03/17 05:30 - Labs Result Diagrams: 12/02/17 23:45 12/02/17 23:45 Labs: Laboratory Results - last 24 hr 12/02/17 12/02/17 12/02/17 23:45 23:45 23:45 WBC 15.2 H D RBC 3.87 Hgb 11.2 L Hct 34.0 MCV 87.9 MCH 29.0 MCHC 33.0 RDW 13.5 Plt Count 303 MPV 8.6 Neut % (Auto) 83.1 H Lymph % (Auto) 6.0 L [place] % (Auto) 8.3 Eos % (Auto) 2.3 Baso % (Auto) 0.3 Neut # (Auto) 12.6 H Lymph # (Auto) 0.9 L [place] # (Auto) 1.3 H Eos # (Auto) 0.3 Baso # (Auto) 0.0 Neutrophils % (Manual) 79 H Band Neutrophils % 3 H Lymphocytes % (Manual) 10 L Monocytes % (Manual) 7 Eosinophils % (Manual) 1 Platelet Estimate Normal RBC Morphology Normal Sodium 135 Potassium 4.2 Chloride 102 Carbon Dioxide 22 Anion Gap 15 BUN 16 Creatinine 0.6 L Est GFR ( Amer) > 60 Est GFR (Non-Af Amer) > 60 Random Glucose 105 Calcium 9.0 Total Bilirubin 0.6 AST 24 ALT 18 Alkaline Phosphatase 54 Total Protein 7.5 Albumin 3.9 Globulin 3.6 Albumin/Globulin Ratio 1.1 Urine Color Straw Urine Clarity Slighty-cloudy Urine pH 6.0 Ur Specific [place] < 1.005 Urine Protein Negative Urine Glucose (UA) Neg Urine Ketones Negative Urine Blood Negative Urine Nitrate Negative Urine Bilirubin Negative Urine Urobilinogen 0.2-1.0 Ur Leukocyte Esterase Mod Urine RBC (Auto) 5 H Urine Microscopic WBC 11 H Ur Squamous Epith Cells 1 Urine Bacteria Rare - Imaging and Cardiology CT scan - abdomen Status: Image reviewed by me, Report reviewed by me Assessment & Plan - Assessment and Plan (Free Text) Assessment: 26yo F s/p davinci L oopherectomy/salpingectomy and appendectomy, POD #9, presenting w/ post-op fevers -Admitted under Dr. Schaffer -Regular diet as tolerated -Repeat CBC -IV Abx: Zosyn -F/U Final CT report -Encourage OOB/Ambulation DW Dr Karime Emerson PGY4
[2017-12-03] MEDS: Piperacillin/Tazobact 3.375 GM in Sodium Chloride 0.9% 100 ML IVPB SCH ×4 (06:25→21:31)
[2017-12-03 07:52] LABS: BASO % 0.3 % (0.0-2.0); EOS # 0.3 K/uL (0.0-0.7); EOS % 2.6 % (0.0-4.0); LYMPH % 7.9 % (20.0-40.0); MEAN CELL VOLUME 87.5 fl (81.0-99.0); MEAN CORPUSCULAR HEMOGLOBIN 29.3 pg (27.0-31.0); MEAN CORPUSCULAR HGB CONC 33.5 g/dL (33.0-37.0); MEAN PLATELET VOLUME 8.6 fl (7.2-11.7); MONO # 1.3 K/uL (0.0-0.8); NEUT # 10.3 K/uL (1.8-7.0); NEUT % 79.2 % (50.0-75.0); RBC 3.77 Mil/uL (3.80-5.20); RED CELL DISTRIBUTION WIDTH 13.4 % (11.5-14.5)
--- NOTE | 2017-12-03 11:35 | CP.PCM.PN ---
Subjective - Date & Time of Evaluation Date of Evaluation: 12/03/17 Time of Evaluation: 11:30 - Subjective Subjective: I D NOTE HAVE ADDED FLAGYL AWAIT CULTURES Objective - Vital Signs/Intake and Output Vital Signs (last 24 hours): Temp Pulse Resp BP Pulse Ox 98.4 F 94 H 18 98/65 L 98 12/03/17 08:45 12/03/17 11:05 12/03/17 11:05 12/03/17 08:45 12/03/17 08:45 - Medications Medications: Current Medications Sodium Chloride (Sodium Chloride 0.9%) 1,000 mls @ 80 mls/hr IV .[id number] RENARD Stop: 12/03/17 18:29 Last Admin: 12/03/17 07:03 Dose: 80 mls/hr Piperacillin Sod/Tazobactam (Sod 3.375 gm/ Sodium Chloride) 100 mls @ 100 mls/ hr IVPB Q6 RENARD PRN Reason: Protocol Last Admin: 12/03/17 09:25 Dose: 100 mls/hr Metronidazole (Flagyl 500mg/100ml Ns) 100 mls @ 100 mls/hr IVPB Q8 RENARD PRN Reason: Protocol Oxycodone/Acetaminophen (Percocet 5/325 Mg Tab) 1 tab PO Q4 PRN PRN Reason: Pain, moderate (4-7) Stop: 12/06/17 05:52 - Labs Labs: 12/03/17 06:26 12/02/17 23:45
[2017-12-03] MEDS: metroNIDAZOLE 500mg/100ml NS 100 ML IVPB SCH ×2 (11:49→17:26)
[2017-12-03] MEDS ORDERED: Benzocaine/Menthol (Cepacol) Lozenge PO ONE (13:58)
--- NOTE | 2017-12-03 14:17 | CT ---
Date of service: 12/03/2017 PROCEDURE: CT Abdomen and Pelvis with contrast HISTORY: abd pain,fever COMPARISON: None. TECHNIQUE: Contrast dose: 90 cc Omnipaque 300 Radiation dose: Total exam DLP = 312.64 mGy-cm. This CT exam was performed using one or more of the following dose reduction techniques: Automated exposure control, adjustment of the mA and/or kV according to patient size, and/or use of iterative reconstruction technique. FINDINGS: LOWER THORAX: Heart size normal. No significant pericardial effusion Small hiatal hernia. Minor passive/ dependent type atelectasis both posterior sulci. LIVER: Unremarkable. No gross lesion or ductal dilatation. . There is a sub cm focus low attenuation lateral aspect right lobe liver too small characterize. This could represent small cyst or hemangioma. Followup interval recommended to assess stability. GALLBLADDER AND BILE DUCTS: Unremarkable. PANCREAS: Unremarkable. No gross lesion or ductal dilatation. SPLEEN: Unremarkable. ADRENALS: Unremarkable. No mass. KIDNEYS AND URETERS: Unremarkable. No hydronephrosis. No solid mass. VASCULATURE: Unremarkable. No aortic aneurysm. BOWEL: As below. No evidence of acute mechanical small bowel obstruction with oral contrast material seen in the colon to the level of the distal sigmoid. Findings consistent with fecal retention/constipation. APPENDIX: There appears to be markedly dilated fluid filled appendix with rim enhancement enhancing consistent with acute appendicitis. . Questionable surrounding phlegmonous changes suggesting possible are early rupture. The aforementioned phlegmonous changes appear to encroaching compress the inferomedial/ base of the cecum. There is free fluid seen in the pelvis is well. PERITONEUM: Unremarkable. No free fluid. No free air. LYMPH NODES: Unremarkable. No enlarged lymph nodes. BLADDER: Unremarkable. REPRODUCTIVE: Involuting corpus luteum or hemorrhagic cyst right ovary measuring approximately 17 mm. There is surrounding periadnexal fluid. Thickened endometrial canal. Rule out endometrial hyperplasia or endometrial polyps. Follow-up ultrasound recommended BONES: No acute fracture. OTHER FINDINGS: Note made of a elliptical shaped approximately 3.1 by 2.0 cm fluid collection within the left parasagittal subcutaneous tissues adjacent to the umbilicus. . In addition, there is moderate amount of air within the subcutaneous tissues abutting the left external oblique musculature with what appears represent some extension beneath the external oblique muscle as well . There is a 2nd smaller fluid collection just to the left of midline containing air-fluid level. Clinical correlation with history recommended. IMPRESSION: Findings consistent with acute appendicitis a possible early rupture. There is also free fluid in the pelvis. There are fluid collections seen within the subcutaneous tissues ventral wall of the abdomen associate with a fair amount of subcutaneous emphysema. Findings could represent superinfection of these collections with air forming no bacteria. Clinic correlation with history is recommended. Involuting corpus luteum or hemorrhagic cyst right ovary with surrounding periadnexal fluid. Thickened endometrial canal; rule out endometrial hyperplasia or endometrial polyps. Follow-up pelvic ultrasound recommended. There is a sub cm focus low attenuation lateral aspect right lobe liver too small characterize. This could represent small cyst or hemangioma. Followup interval recommended to assess stability. Preliminary report provided by overnight radiology service Note this report was placed in [place] review folder for followup
[2017-12-04] MEDS: metroNIDAZOLE 500mg/100ml NS 100 ML IVPB SCH ×2 (01:00→09:02)
[2017-12-04] MEDS: Piperacillin/Tazobact 3.375 GM in Sodium Chloride 0.9% 100 ML IVPB SCH ×4 (04:11→22:30)
[2017-12-04 07:33] LABS: HEMOGLOBIN 10.7 g/dL (12.0-16.0); MEAN CELL VOLUME 88.2 fl (81.0-99.0); MEAN CORPUSCULAR HEMOGLOBIN 29.4 pg (27.0-31.0); MEAN CORPUSCULAR HGB CONC 33.4 g/dL (33.0-37.0); RBC 3.64 Mil/uL (3.80-5.20); RED CELL DISTRIBUTION WIDTH 13.5 % (11.5-14.5); WHITE BLOOD COUNT 11.8 K/uL (4.8-10.8)
--- NOTE | 2017-12-04 08:31 | CP.PCM.PN ---
Subjective - Date & Time of Evaluation Date of Evaluation: 12/04/17 Time of Evaluation: 08:29 - Subjective Subjective: General Surgery Dr. Schaffer Pt S&E @bedside. pt febrile overnight, w/ Tmax 102.7, resolved w/ tylenol. No other issues. Pain improved. pt denies N/V, D/C. tolerating diet. Objective - Vital Signs/Intake and Output Vital Signs (last 24 hours): Temp Pulse Resp BP Pulse Ox 99.7 F H 90 18 98/60 L 98 12/04/17 04:03 12/04/17 04:03 12/04/17 04:03 12/04/17 04:03 12/04/17 04:03 - Medications Medications: Current Medications Acetaminophen (Tylenol 325mg Tab) 650 mg PO Q4 PRN PRN Reason: Fever >100.4 F Last Admin: 12/03/17 17:45 Dose: 650 mg Piperacillin Sod/Tazobactam (Sod 3.375 gm/ Sodium Chloride) 100 mls @ 100 mls/ hr IVPB Q6 RENARD PRN Reason: Protocol Last Admin: 12/04/17 04:11 Dose: 100 mls/hr Metronidazole (Flagyl 500mg/100ml Ns) 100 mls @ 100 mls/hr IVPB Q8 RENARD PRN Reason: Protocol Last Admin: 12/04/17 01:00 Dose: 100 mls/hr Sodium Chloride (Sodium Chloride 0.9%) 1,000 mls @ 50 mls/hr IV .Q20H RENARD Stop: 12/04/17 19:31 Last Admin: 12/03/17 20:15 Dose: 50 mls/hr Oxycodone/Acetaminophen (Percocet 5/325 Mg Tab) 1 tab PO Q4 PRN PRN Reason: Pain, moderate (4-7) Stop: 12/06/17 05:52 - Labs Labs: 12/04/17 06:30 12/02/17 23:45 - Constitutional Appears: Non-toxic, No Acute Distress - Head Exam Head Exam: NORMAL INSPECTION - Eye Exam Eye Exam: Normal appearance - ENT Exam ENT Exam: Mucous Membranes Moist - Respiratory Exam Respiratory Exam: NORMAL BREATHING PATTERN. absent: Accessory Muscle Use, Respiratory Distress - Cardiovascular Exam Cardiovascular Exam: REGULAR RHYTHM. absent: Bradycardia, Tachycardia - GI/Abdominal Exam GI & Abdominal Exam: Distended (mild), Tenderness. absent: Firm, Guarding, Rigid, Rebound Additional comments: port site incisions c/d/i umbilical port site erythematous, indurated. no fluctuance palpable - Extremities Exam Extremities Exam: Normal Inspection - Neurological Exam Neurological Exam: Alert, Awake, Oriented x3 - Psychiatric Exam Psychiatric exam: Normal Affect, Normal Mood - Skin Skin Exam: Dry, Intact, Normal Color, Warm Assessment and Plan - Assessment and Plan (Free Text) Assessment: 26 y/o F POD#10 s/p L robotic salpingo-ooph + appendectomy now w/ umbilibal port -site cellulitis and seroma vs abscess - cont warm compresses - cont pain management - monitor vitals - cont IV Abx per ID - ADAT - encourage OOB to chair/Amb/IS use - SCDs while in bed Pt discussed w/ Dr. Karime Bellamy DO PGY3
--- NOTE | 2017-12-04 15:43 | CP.PCM.PN ---
Subjective - Date & Time of Evaluation Date of Evaluation: 12/04/17 Time of Evaluation: 15:43 - Subjective Subjective: I D NOTE STILL c FEVER PATEFNT EXAMINED,CHART REVIEWED UMBILICAL CELLULITIS DC FLAGYL,START VANCOMYCIN Objective - Vital Signs/Intake and Output Vital Signs (last 24 hours): Temp Pulse Resp BP Pulse Ox 99.3 F 107 H 18 99/66 L 99 12/04/17 13:47 12/04/17 12:17 12/04/17 12:17 12/04/17 12:17 12/04/17 12:17 - Medications Medications: Current Medications Acetaminophen (Tylenol 325mg Tab) 650 mg PO Q4 PRN PRN Reason: Fever >100.4 F Last Admin: 12/04/17 13:36 Dose: 650 mg Piperacillin Sod/Tazobactam (Sod 3.375 gm/ Sodium Chloride) 100 mls @ 100 mls/ hr IVPB Q6 RENARD PRN Reason: Protocol Last Admin: 12/04/17 09:02 Dose: 100 mls/hr Metronidazole (Flagyl 500mg/100ml Ns) 100 mls @ 100 mls/hr IVPB Q8 RENARD PRN Reason: Protocol Last Admin: 12/04/17 09:02 Dose: 100 mls/hr Sodium Chloride (Sodium Chloride 0.9%) 1,000 mls @ 50 mls/hr IV .Q20H RENARD Stop: 12/04/17 19:31 Last Admin: 12/03/17 20:15 Dose: 50 mls/hr Vancomycin HCl 1 gm/ Sodium (Chloride) 250 mls @ 166.667 mls/hr IVPB Q12 RENARD PRN Reason: Protocol Oxycodone/Acetaminophen (Percocet 5/325 Mg Tab) 1 tab PO Q4 PRN PRN Reason: Pain, moderate (4-7) Stop: 12/06/17 05:52 - Labs Labs: 12/04/17 06:30 12/02/17 23:45
[2017-12-05] MEDS: Piperacillin/Tazobact 3.375 GM in Sodium Chloride 0.9% 100 ML IVPB SCH ×4 (04:00→22:54)
[2017-12-05 07:10] LABS: HEMOGLOBIN 11.2 g/dL (12.0-16.0); MEAN CELL VOLUME 87.1 fl (81.0-99.0); MEAN CORPUSCULAR HEMOGLOBIN 29.6 pg (27.0-31.0); MEAN CORPUSCULAR HGB CONC 33.9 g/dL (33.0-37.0); RBC 3.78 Mil/uL (3.80-5.20); RED CELL DISTRIBUTION WIDTH 13.5 % (11.5-14.5); WHITE BLOOD COUNT 13.7 K/uL (4.8-10.8)
--- NOTE | 2017-12-05 07:39 | CP.PCM.PN ---
Subjective - Date & Time of Evaluation Date of Evaluation: 12/05/17 Time of Evaluation: 07:39 - Subjective Subjective: General Surgery - Dr. Schaffer Pt S&E. Pt febrile to 100.7 last night. Currently pt states she feels a little better, still with some pain at the umbilical incision. She is tolerating regular diet and ambulating. No Nausea/Vomiting. Objective - Vital Signs/Intake and Output Vital Signs (last 24 hours): Temp Pulse Resp BP Pulse Ox 98.2 F 107 H 20 97/61 L 96 12/05/17 05:00 12/05/17 00:27 12/05/17 00:27 12/05/17 00:27 12/05/17 00:27 - Medications Medications: Current Medications Acetaminophen (Tylenol 325mg Tab) 650 mg PO Q4 PRN PRN Reason: Fever >100.4 F Last Admin: 12/04/17 22:02 Dose: 650 mg Piperacillin Sod/Tazobactam (Sod 3.375 gm/ Sodium Chloride) 100 mls @ 100 mls/ hr IVPB Q6 RENARD PRN Reason: Protocol Last Admin: 12/05/17 04:00 Dose: 100 mls/hr Vancomycin HCl 1 gm/ Sodium (Chloride) 250 mls @ 166.667 mls/hr IVPB Q12 RENARD PRN Reason: Protocol Last Admin: 12/04/17 21:00 Dose: 166.667 mls/hr Ketorolac Tromethamine (Toradol) 15 mg IVP Q6 PRN PRN Reason: Pain, severe (8-10) Oxycodone/Acetaminophen (Percocet 5/325 Mg Tab) 1 tab PO Q4 PRN PRN Reason: Pain, moderate (4-7) Stop: 12/06/17 05:52 - Labs Labs: 12/05/17 06:40 12/02/17 23:45 - Constitutional Appears: No Acute Distress - Head Exam Head Exam: ATRAUMATIC, NORMOCEPHALIC - Respiratory Exam Respiratory Exam: NORMAL BREATHING PATTERN. absent: Respiratory Distress - Cardiovascular Exam Cardiovascular Exam: REGULAR RHYTHM - GI/Abdominal Exam GI & Abdominal Exam: Soft, Tenderness (ttp around umbilical incision, erythema improved, induration with small fluctuant area). absent: Distended, Firm, Guarding, Rigid, Rebound - Neurological Exam Neurological Exam: Alert, Oriented x3 - Psychiatric Exam Psychiatric exam: Normal Affect, Normal Mood - Skin Skin Exam: Dry, Intact Assessment and Plan - Assessment and Plan (Free Text) Assessment: 26F POD#11 s/p L robotic salpingo-oopherectomy + appendectomy now w/ umbilical port cellulitis -Continue Warm compresses -Abx as per ID, Vanco added -Regular diet -Encourage OOB, Ambulation DW Dr Karime Emerson PGY4
[2017-12-05] MEDS: Enoxaparin 30 mg Syringe SC SCH ×2 (11:05→11:07)
--- NOTE | 2017-12-05 19:15 | CP.PCM.PN ---
Subjective - Date & Time of Evaluation Date of Evaluation: 12/05/17 Time of Evaluation: 19:14 - Subjective Subjective: I D NOTE DOES NOT APPEAR TO BE IMPROVED STILL HAS FEVER MAY NEED SOME DRAINAGE DISCUSSED c SURGERY WBC:13,7 INCREASED FROM 11 Objective - Vital Signs/Intake and Output Vital Signs (last 24 hours): Temp Pulse Resp BP Pulse Ox 98.3 F 98 H 18 97/65 L 100 12/05/17 17:00 12/05/17 16:18 12/05/17 16:18 12/05/17 16:18 12/05/17 16:18 - Medications Medications: Current Medications Acetaminophen (Tylenol 325mg Tab) 650 mg PO Q4 PRN PRN Reason: Fever >100.4 F Last Admin: 12/05/17 15:48 Dose: 650 mg Enoxaparin Sodium (Lovenox) 30 mg SC DAILY RENARD PRN Reason: Protocol Last Admin: 12/05/17 11:07 Dose: Not Given Piperacillin Sod/Tazobactam (Sod 3.375 gm/ Sodium Chloride) 100 mls @ 100 mls/ hr IVPB Q6 RENARD PRN Reason: Protocol Last Admin: 12/05/17 15:51 Dose: 100 mls/hr Vancomycin HCl 1 gm/ Sodium (Chloride) 250 mls @ 166.667 mls/hr IVPB Q12 RENARD PRN Reason: Protocol Last Admin: 12/05/17 10:12 Dose: 166.667 mls/hr Ketorolac Tromethamine (Toradol) 15 mg IVP Q6 PRN PRN Reason: Pain, severe (8-10) Oxycodone/Acetaminophen (Percocet 5/325 Mg Tab) 1 tab PO Q4 PRN PRN Reason: Pain, moderate (4-7) Stop: 12/06/17 05:52 - Labs Labs: 12/05/17 06:40 12/02/17 23:45
[2017-12-05] MEDS ORDERED: Benzocaine/Menthol (Cepacol) Lozenge PO ONE (23:39)
[2017-12-06] MEDS: Piperacillin/Tazobact 3.375 GM in Sodium Chloride 0.9% 100 ML IVPB SCH ×2 (03:57→09:42)
[2017-12-06 06:37] LABS: BASO % 0.3 % (0.0-2.0); EOS # 0.5 K/uL (0.0-0.7); EOS % 4.6 % (0.0-4.0); HEMOGLOBIN 10.6 g/dL (12.0-16.0); LYMPH # 1.6 K/uL (1.0-4.3); LYMPH % 13.7 % (20.0-40.0); MEAN CELL VOLUME 87.5 fl (81.0-99.0); MEAN CORPUSCULAR HEMOGLOBIN 28.8 pg (27.0-31.0); MEAN CORPUSCULAR HGB CONC 32.9 g/dL (33.0-37.0); MONO # 1.1 K/uL (0.0-0.8); MONO % 9.8 % (0.0-10.0); NEUT # 8.1 K/uL (1.8-7.0); NEUT % 71.6 % (50.0-75.0); RBC 3.69 Mil/uL (3.80-5.20); RED CELL DISTRIBUTION WIDTH 13.4 % (11.5-14.5); WHITE BLOOD COUNT 11.3 K/uL (4.8-10.8)
--- NOTE | 2017-12-06 07:27 | CP.PCM.PN ---
Subjective - Date & Time of Evaluation Date of Evaluation: 12/06/17 Time of Evaluation: 07:22 - Subjective Subjective: Surgery Pt seen and examined. Pt had fever of 101.5 yesterday afternoon. Denies nausea, vomiting, diarrhea. C/O abd pain. VOiding. Ambulating. TOlerating diet. Objective - Vital Signs/Intake and Output Vital Signs (last 24 hours): Temp Pulse Resp BP Pulse Ox 98.1 F 74 17 94/58 L 96 12/06/17 05:57 12/06/17 05:57 12/06/17 05:57 12/06/17 05:57 12/06/17 05:57 - Medications Medications: Current Medications Acetaminophen (Tylenol 325mg Tab) 650 mg PO Q4 PRN PRN Reason: Fever >100.4 F Last Admin: 12/05/17 15:48 Dose: 650 mg Enoxaparin Sodium (Lovenox) 30 mg SC DAILY RENARD PRN Reason: Protocol Last Admin: 12/05/17 11:07 Dose: Not Given Piperacillin Sod/Tazobactam (Sod 3.375 gm/ Sodium Chloride) 100 mls @ 100 mls/ hr IVPB Q6 RENARD PRN Reason: Protocol Last Admin: 12/06/17 03:57 Dose: 100 mls/hr Vancomycin HCl 1 gm/ Sodium (Chloride) 250 mls @ 166.667 mls/hr IVPB Q12 RENARD PRN Reason: Protocol Last Admin: 12/05/17 21:56 Dose: 166.667 mls/hr Ketorolac Tromethamine (Toradol) 15 mg IVP Q6 PRN PRN Reason: Pain, severe (8-10) - Labs Labs: 12/06/17 06:10 12/02/17 23:45 - Constitutional Appears: No Acute Distress - Head Exam Head Exam: ATRAUMATIC, NORMAL INSPECTION, NORMOCEPHALIC - Eye Exam Eye Exam: EOMI, Normal appearance, PERRL Pupil Exam: NORMAL ACCOMODATION, PERRL - ENT Exam ENT Exam: Mucous Membranes Moist, Normal Exam - Neck Exam Neck Exam: Full ROM, Normal Inspection. absent: Lymphadenopathy - Respiratory Exam Respiratory Exam: NORMAL BREATHING PATTERN - Cardiovascular Exam Cardiovascular Exam: REGULAR RHYTHM, +S1, +S2 - GI/Abdominal Exam GI & Abdominal Exam: Soft, Tenderness, Normal Bowel Sounds. absent: Distended, Rigid Additional comments: L side of umblical area 3x4cm erythema. Fluctuant. TTP. - Exam Exam: NORMAL INSPECTION - Extremities Exam Extremities Exam: Full ROM, Normal Capillary Refill, Normal Inspection. absent : Joint Swelling, Pedal Edema - Back Exam Back Exam: NORMAL INSPECTION - Neurological Exam Neurological Exam: Alert, Awake, CN II-XII Intact, Normal Gait, Oriented x3 - Psychiatric Exam Psychiatric exam: Normal Affect, Normal Mood - Skin Skin Exam: Dry, Erythema, Intact, Warm Assessment and Plan - Assessment and Plan (Free Text) Assessment: 26F POD#12 s/p L robotic salpingo-oopherectomy + appendectomy now w/ umbilical port cellulitis -Continue Warm compresses -Abx as per Naima LAGOS added, recommends drainage -Regular diet -Encourage OOB, Ambulation Will DW Dr Schaffer
[2017-12-06] MEDS ORDERED: HYDROmorphone 0.5 mg/0.5 ml ISec IVP STA (11:18)
[2017-12-06] MEDS ORDERED: Lidocaine 1% Inj (20ml) IJ ONE (11:19)
[2017-12-06] MEDS ORDERED: Iodoform 1/2inx15ft BOT EXT ONE (11:28)
[2017-12-06] MEDS ORDERED: Povidone Iodine Topical 10% Sol ONE (11:31)
[2017-12-06] MEDS ORDERED: Hydrogen Peroxide 3% Soln (480ml) TP ONE (11:39)
--- NOTE | 2017-12-06 11:52 | PCM.SURG1 ---
Surgeon's Initial Post Op Note - Surgeon's Notes Surgeon: Dr. Schaffer Special Delivery Worker: Lorne Sanchez PGY3 Type of Anesthesia: Local Anesthesia Administered By: Dr. Schaffer Pre-Operative Diagnosis: Abd wall abscess Operative Findings: SAme abd abscess 20cc Post-Operative Diagnosis: Same Operation Performed: incision and drainage of abd wall abscess Specimen/Specimens Removed: abscess 20cc Estimated Blood Loss: EBL {In ML}: 5 Blood Products Given: N/A Drains Used: No Drains Post-Op Condition: Good Date of Surgery/Procedure: 12/06/17 Time of Surgery/Procedure: 11:54
[2017-12-06] MEDS: Meropenem 1 GM in Sodium Chloride 0.9% 100 ML IVPB SCH ×2 (16:07→16:08)
[2017-12-07] MEDS: Meropenem 1 GM in Sodium Chloride 0.9% 100 ML IVPB SCH ×3 (00:15→16:50)
[2017-12-07 06:41] LABS: BASO % 0.8 % (0.0-2.0); EOS # 0.5 K/uL (0.0-0.7); EOS % 7.8 % (0.0-4.0); HEMOGLOBIN 10.8 g/dL (12.0-16.0); LYMPH # 1.6 K/uL (1.0-4.3); LYMPH % 27.5 % (20.0-40.0); MEAN CELL VOLUME 88.3 fl (81.0-99.0); MEAN CORPUSCULAR HEMOGLOBIN 28.7 pg (27.0-31.0); MEAN CORPUSCULAR HGB CONC 32.5 g/dL (33.0-37.0); MEAN PLATELET VOLUME 8.2 fl (7.2-11.7); MONO # 0.7 K/uL (0.0-0.8); MONO % 11.7 % (0.0-10.0); NEUT # 3.1 K/uL (1.8-7.0); NEUT % 52.2 % (50.0-75.0); RBC 3.76 Mil/uL (3.80-5.20); RED CELL DISTRIBUTION WIDTH 13.6 % (11.5-14.5); WHITE BLOOD COUNT 5.9 K/uL (4.8-10.8)
[2017-12-07] MEDS ORDERED: Oxycodone/Acetaminophen 5/325 mg Tab PO PRN (10:36)
--- NOTE | 2017-12-07 10:40 | CP.PCM.PN ---
Subjective - Date & Time of Evaluation Date of Evaluation: 12/07/17 Time of Evaluation: 10:39 - Subjective Subjective: Surgery pt seen and examined. No acute events. Dressing changed with surgical team. Pain controlled. Ambulating. Voiding. TOlerating diet. Denies fever. No fever over 24 hrs. Objective - Vital Signs/Intake and Output Vital Signs (last 24 hours): Temp Pulse Resp BP Pulse Ox 98.1 F 71 18 95/65 L 96 12/07/17 08:22 12/07/17 08:22 12/07/17 08:22 12/07/17 08:22 12/07/17 08:22 - Medications Medications: Current Medications Acetaminophen (Tylenol 325mg Tab) 650 mg PO Q4 PRN PRN Reason: Fever >100.4 F Last Admin: 12/05/17 15:48 Dose: 650 mg Vancomycin HCl 1 gm/ Sodium (Chloride) 250 mls @ 166.667 mls/hr IVPB Q12 RENARD PRN Reason: Protocol Last Admin: 12/07/17 09:11 Dose: 166.667 mls/hr Meropenem 1 gm/ Sodium (Chloride) 100 mls @ 100 mls/hr IVPB Q8 RENARD PRN Reason: Protocol Last Admin: 12/07/17 09:10 Dose: 100 mls/hr Ketorolac Tromethamine (Toradol) 15 mg IVP Q6 PRN PRN Reason: Pain, severe (8-10) Last Admin: 12/07/17 10:02 Dose: 15 mg Oxycodone/Acetaminophen (Percocet 5/325 Mg Tab) 2 tab PO Q4 PRN PRN Reason: Pain, moderate (4-7) Stop: 12/10/17 10:37 - Labs Labs: 12/07/17 06:05 12/02/17 23:45 - Constitutional Appears: No Acute Distress - Head Exam Head Exam: ATRAUMATIC, NORMAL INSPECTION, NORMOCEPHALIC - Eye Exam Eye Exam: EOMI, Normal appearance, PERRL Pupil Exam: NORMAL ACCOMODATION, PERRL - ENT Exam ENT Exam: Mucous Membranes Moist, Normal Exam - Neck Exam Neck Exam: Full ROM, Normal Inspection. absent: Lymphadenopathy - Respiratory Exam Respiratory Exam: NORMAL BREATHING PATTERN - Cardiovascular Exam Cardiovascular Exam: REGULAR RHYTHM, +S1, +S2. absent: Tachycardia, Murmur - GI/Abdominal Exam GI & Abdominal Exam: Soft, Tenderness, Normal Bowel Sounds. absent: Distended Additional comments: [id number] wound. Mild drainage of bleeding. eryhtema - Exam Exam: NORMAL INSPECTION - Extremities Exam Extremities Exam: Full ROM, Normal Capillary Refill, Normal Inspection. absent : Joint Swelling, Pedal Edema - Back Exam Back Exam: NORMAL INSPECTION - Neurological Exam Neurological Exam: Alert, Awake, CN II-XII Intact, Normal Gait, Oriented x3 - Psychiatric Exam Psychiatric exam: Normal Affect, Normal Mood - Skin Skin Exam: Dry, Intact, Normal Color, Warm Assessment and Plan - Assessment and Plan (Free Text) Assessment: POD 1 s/p I & D of Abd wall absecess ABX Per ID Regular diet Dressing change TID CARLOS Schaffer
--- NOTE | 2017-12-07 17:05 | CP.PCM.PN ---
Subjective - Date & Time of Evaluation Date of Evaluation: 12/07/17 Time of Evaluation: 17:03 - Subjective Subjective: s/p i and d of umbilical abscess doing wll Objective - Vital Signs/Intake and Output Vital Signs (last 24 hours): Temp Pulse Resp BP Pulse Ox 98.3 F 78 20 96/62 L 99 12/07/17 16:26 12/07/17 16:26 12/07/17 16:26 12/07/17 16:26 12/07/17 16:26 - Medications Medications: Current Medications Acetaminophen (Tylenol 325mg Tab) 650 mg PO Q4 PRN PRN Reason: Fever >100.4 F Last Admin: 12/05/17 15:48 Dose: 650 mg Vancomycin HCl 1 gm/ Sodium (Chloride) 250 mls @ 166.667 mls/hr IVPB Q12 RENARD PRN Reason: Protocol Last Admin: 12/07/17 09:11 Dose: 166.667 mls/hr Meropenem 1 gm/ Sodium (Chloride) 100 mls @ 100 mls/hr IVPB Q8 RENARD PRN Reason: Protocol Last Admin: 12/07/17 09:10 Dose: 100 mls/hr Ketorolac Tromethamine (Toradol) 15 mg IVP Q6 PRN PRN Reason: Pain, severe (8-10) Last Admin: 12/07/17 10:02 Dose: 15 mg Oxycodone/Acetaminophen (Percocet 5/325 Mg Tab) 2 tab PO Q4 PRN PRN Reason: Pain, moderate (4-7) Stop: 12/10/17 10:37 - Labs Labs: 12/07/17 06:05 12/02/17 23:45 Assessment and Plan - Assessment and Plan (Free Text) Assessment: s/p i and of abscess doingb well wbc down Plan: d/c in am
[2017-12-08] MEDS: Meropenem 1 GM in Sodium Chloride 0.9% 100 ML IVPB SCH ×2 (00:11→09:31)
[2017-12-08 07:37] VITALS: BP 97/62; PULSE 72; RESP 18; TEMP 98; O2SAT 98
[2017-12-08 08:15] LABS: BASO # 0.1 K/uL (0.0-0.2); BASO % 1.1 % (0.0-2.0); EOS # 0.4 K/uL (0.0-0.7); EOS % 8.3 % (0.0-4.0); HEMOGLOBIN 11.5 g/dL (12.0-16.0); LYMPH # 1.4 K/uL (1.0-4.3); LYMPH % 26.3 % (20.0-40.0); MEAN CELL VOLUME 88.1 fl (81.0-99.0); MEAN CORPUSCULAR HEMOGLOBIN 29.4 pg (27.0-31.0); MEAN CORPUSCULAR HGB CONC 33.4 g/dL (33.0-37.0); MEAN PLATELET VOLUME 8.1 fl (7.2-11.7); MONO # 0.4 K/uL (0.0-0.8); MONO % 7.2 % (0.0-10.0); NEUT # 3.1 K/uL (1.8-7.0); NEUT % 57.1 % (50.0-75.0); RBC 3.89 Mil/uL (3.80-5.20); RED CELL DISTRIBUTION WIDTH 13.4 % (11.5-14.5); WHITE BLOOD COUNT 5.4 K/uL (4.8-10.8)
--- NOTE | 2017-12-08 09:49 | CP.PCM.DIS ---
Provider - Provider Date of Admission: 12/03/17 05:20 Attending physician: Nasim Schaffer MD Primary care physician: Nasim Schaffer- general surgery Consults: YOLIS- Dr. Ayers Time Spent in preparation of Discharge (in minutes): 35 Diagnosis - Discharge Diagnosis (1) Abscess or cellulitis of umbilicus Status: Acute Hospital Course - Lab Results Lab Results: Micro Results 12/03/17 18:42 Blood Blood Culture - Preliminary NO GROWTH AFTER 4 DAYS 12/03/17 18:32 Blood Blood Culture - Preliminary NO GROWTH AFTER 4 DAYS 12/06/17 18:20 Abdomen Gram Stain - Final 12/06/17 18:20 Abdomen Wound Culture - Preliminary NO GROWTH AFTER 24 HOURS 12/02/17 10:45 Blood-Venous Blood Culture - Preliminary NO GROWTH AFTER 4 DAYS 12/02/17 10:45 Blood-Venous Blood Culture - Preliminary NO GROWTH AFTER 4 DAYS 12/03/17 06:54 Urine Urine Culture - Final No Growth (<1,000 CFU/ML) Most Recent Lab Values WBC 5.4 K/uL (4.8-10.8) 12/08/17 08:02 RBC 3.89 Mil/uL (3.80-5.20) 12/08/17 08:02 Hgb 11.5 g/dL (12.0-16.0) L 12/08/17 08:02 Hct 34.3 % (34.0-47.0) 12/08/17 08:02 MCV 88.1 fl (81.0-99.0) 12/08/17 08:02 MCH 29.4 pg (27.0-31.0) 12/08/17 08:02 MCHC 33.4 g/dL (33.0-37.0) 12/08/17 08:02 RDW 13.4 % (11.5-14.5) 12/08/17 08:02 Plt Count 366 K/uL (130-400) 12/08/17 08:02 MPV 8.1 fl (7.2-11.7) 12/08/17 08:02 Neut % (Auto) 57.1 % (50.0-75.0) 12/08/17 08:02 Lymph % (Auto) 26.3 % (20.0-40.0) 12/08/17 08:02 Gaines % (Auto) 7.2 % (0.0-10.0) 12/08/17 08:02 Eos % (Auto) 8.3 % (0.0-4.0) H 12/08/17 08:02 Baso % (Auto) 1.1 % (0.0-2.0) 12/08/17 08:02 Neut # (Auto) 3.1 K/uL (1.8-7.0) 12/08/17 08:02 Lymph # (Auto) 1.4 K/uL (1.0-4.3) 12/08/17 08:02 Gaines # (Auto) 0.4 K/uL (0.0-0.8) 12/08/17 08:02 Eos # (Auto) 0.4 K/uL (0.0-0.7) 12/08/17 08:02 Baso # (Auto) 0.1 K/uL (0.0-0.2) 12/08/17 08:02 Neutrophils % (Manual) 79 % (42-75) H 12/02/17 23:45 Band Neutrophils % 3 % (0-2) H 12/02/17 23:45 Lymphocytes % (Manual) 10 % (20-50) L 12/02/17 23:45 Monocytes % (Manual) 7 % (0-10) 12/02/17 23:45 Eosinophils % (Manual) 1 % (0-7) 12/02/17 23:45 Platelet Estimate Normal (NORMAL) 12/02/17 23:45 RBC Morphology Normal (NORMAL) 12/02/17 23:45 Sodium 135 mmol/l (132-148) 12/02/17 23:45 Potassium 4.2 MMOL/L (3.6-5.0) 12/02/17 23:45 Chloride 102 mmol/L (98-107) 12/02/17 23:45 Carbon Dioxide 22 mmol/L (22-30) 12/02/17 23:45 Anion Gap 15 (10-20) 12/02/17 23:45 BUN 16 mg/dl (7-17) 12/02/17 23:45 Creatinine 0.6 mg/dl (0.7-1.2) L 12/02/17 23:45 Est GFR ( Amer) > 60 12/02/17 23:45 Est GFR (Non-Af Amer) > 60 12/02/17 23:45 Random Glucose 105 mg/dL (65-105) 12/02/17 23:45 Lactic Acid 1.2 MMOL/L (0.7-2.1) 12/03/17 11:45 Calcium 9.0 mg/dL (8.4-10.2) 12/02/17 23:45 Total Bilirubin 0.6 mg/dl (0.2-1.3) 12/02/17 23:45 AST 24 U/L (14-36) 12/02/17 23:45 ALT 18 U/L (9-52) 12/02/17 23:45 Alkaline Phosphatase 54 U/L (38-126) 12/02/17 23:45 Total Protein 7.5 G/DL (6.3-8.2) 12/02/17 23:45 Albumin 3.9 g/dL (3.5-5.0) 12/02/17 23:45 Globulin 3.6 gm/dL (2.2-3.9) 12/02/17 23:45 Albumin/Globulin Ratio 1.1 (1.0-2.1) 12/02/17 23:45 Procalcitonin 0.25 NG/ML (0.19-0.49) 12/03/17 11:45 Urine Color Straw (YELLOW) 12/02/17 23:45 Urine Clarity Slighty-cloudy (Clear) 12/02/17 23:45 Urine pH 6.0 (5.0-8.0) 12/02/17 23:45 Ur Specific Loa < 1.005 (1.003-1.030) 12/02/17 23:45 Urine Protein Negative mg/dL (NEGATIVE) 12/02/17 23:45 Urine Glucose (UA) Neg mg/dL (Normal) 12/02/17 23:45 Urine Ketones Negative mg/dL (NEGATIVE) 12/02/17 23:45 Urine Blood Negative (NEGATIVE) 12/02/17 23:45 Urine Nitrate Negative (NEGATIVE) 12/02/17 23:45 Urine Bilirubin Negative (NEGATIVE) 12/02/17 23:45 Urine Urobilinogen 0.2-1.0 mg/dL (0.2-1.0) 12/02/17 23:45 Ur Leukocyte Esterase Mod Des/uL (Negative) 12/02/17 23:45 Urine RBC (Auto) 5 /hpf (0-3) H 12/02/17 23:45 Urine Microscopic WBC 11 /hpf (0-5) H 12/02/17 23:45 Ur Squamous Epith Cells 1 /hpf (0-5) 12/02/17 23:45 Urine Bacteria Rare (<OCC) 12/02/17 23:45 - Hospital Course Hospital Course: 26yo F w/ hx of Robotic Left salpingectomy, oopherectomy, and appendectomy on 11/24, presenting with fevers and abdominal pain x3 days. Pt states that she has been having fevers at home for the past 3 days, the highest of which she measured was 102F. She also complains of mild-moderate abdominal pain located in the periumbilical region near her umbilical port incision. She denies any aggravating or alleviating factors. Her last BM was yesterday and was normal. Pt denies any other symptoms including Chills/SOB/Cough/Chest pain/Diarrhea/ Constipation/Dysuria/hematuria. Pt admitted to hospital for further wound evaluation/care. Pt seen/evaluated by ID with recommendations for Abx therapy. Pt continued with fevers, erythema of umbilical incision site. Warm compresses applied to umbilical incision site with resultant fluctuance on hospital day 4, which was subsequently incised and drained. After procedure, there were no more reported fevers. Pt tolerated procedure well, pain well controlled. Pt stable and ready for d/c home with home nursing for wound care. Diagnoses umbilical cellulitis & abscess s/p robotic Left salpingectomy, oopherectomy & appendectomy Incision & Drainage of Umbilical abscess - Date & Time of H&P Date of H&P: 12/03/17 Time of H&P: 06:06 Discharge Exam - Head Exam Head Exam: ATRAUMATIC, NORMAL INSPECTION, NORMOCEPHALIC - Eye Exam Eye Exam: EOMI, Normal appearance - ENT Exam ENT Exam: Mucous Membranes Moist, Normal Exam - Neck Exam Neck exam: Full Rom, Normal Inspection - Respiratory Exam Respiratory Exam: Clear to PA & Lateral, NORMAL BREATHING PATTERN, UNREMARKABLE - Cardiovascular Exam Cardiovascular Exam: REGULAR RHYTHM, +S1, +S2 - GI/Abdominal Exam GI & Abdominal Exam: Normal Bowel Sounds, Soft, Tenderness (slightly, over umbilical incision), Unremarkable - Extremities Exam Extremities exam: normal inspection - Neurological Exam Neurological exam: Alert, CN II-XII Intact, Oriented x3 - Psychiatric Exam Psychiatric exam: Normal Affect, Normal Mood - Skin Skin Exam: Dry, Erythema (surrounding umbilicus), Normal Color, Warm Discharge Plan - Discharge Medications Prescriptions: Ketorolac Tromethamine [Toradol] 10 mg PO Q6H PRN #28 tab PRN Reason: Pain, Severe (8-10) Sulfamethoxazole/Trimethoprim [Bactrim DS 800 mg-160 mg] 1 tab PO BID #20 tab - Follow Up Plan Condition: STABLE Disposition: HOME/ ROUTINE Instructions: Skin Abscess, Abscess Incision and Drainage (DC), Cellulitis ( Skin Infection), Adult (DC) Additional Instructions: Please continue packing changes/wound care at home- please change packing 3 times daily for next 4-5 days or however long before no packing is needed. Packing should be dampened with hydrogen peroxide and betadine (50/50 solution) before inserted into wound, then covered with gauze and an abdominal pad, then taped into place to keep clothing dry. Please take all medications as prescribed Please take Tylenol as needed for pain If you take the Toradol for pain, do not take Motrin as well-ok to take with Tylenol Please call Dr. Quintero to follow up in 7-10 days If you have any questions, please call Dr. Quintero's office Referrals: Dimitris Quintero [Medical Doctor] -
--- NOTE | 2017-12-08 13:38 | PCM.OP ---
Operative Report - Operative Report Date of Surgery/Procedure: 11/24/17 Time of Surgery/Procedure: 10:00 Surgeon: Dr. Nasim Schaffer Fur Trimming Machine Operator: Dr. Dimitris Quintero Anesthesia/Sedation: general/Dr. Brown Pre-Operative Diagnosis: abdominal pain and endometriosis Post-Operative Diagnosis: same Indication for Surgery: as above Operative Findings: as above Procedure/Operation Description: 1-Appendectomy. Brief History: This 26 year old woman was already brought to the operating room by Dr. Quintero when he requested an iontraoperative surgery consultation. Description of the Procedure : The patient had alresady been brought to the operatig room by Dr. Quintero ( separate dictation). After takong control of the robotic console the appendix was retracted anteriorly and the mesentery was dessicated to the base. Three 3- 0 vicryl endoloops were placed to ligate the base. The appndix was transected and sent a a separate secpimen to pathology. The operation was then again turned over to Dr. Quintero (separate dictation). Estimated Blood Loss: 2 cc Complications: none Specimen: appendix Discharge & Condition: stable
--- NOTE | 2017-12-08 13:41 | PCM.OP ---
Operative Report - Operative Report Date of Surgery/Procedure: 12/06/17 Time of Surgery/Procedure: 10:00 Surgeon: Dr. Nasim Schaffer Anesthesia/Sedation: local Pre-Operative Diagnosis: abdominal wall abscess with sepsis Post-Operative Diagnosis: same Indication for Surgery: as above Operative Findings: as above Procedure/Operation Description: 1-incision and draoinage of abdominal wall abscess. The patient was infiltrated with 1 percent lidocaine over the abscess area an with an 11 blade the skin was incised and approximately 15 cc of foul smeling purulnet pus was aspirated. The wound was irrigated and packed with betadyne soaked gauz. A clean dreesing was applied. Estimated Blood Loss: 10 cc Complications: none Discharge & Condition: stable
== END 2017-12-08 14:59 | disposition home or self-care (01) | DRG 863 ==
LOC: H.ER 22:27 → H.ERHOLD 12-03 05:20 → H.MEDSURG1 12-03 06:45
PROVIDERS: ADMIT Surgery; ATTEND Surgery
PROC: 0H97XZZ Drainage of Abdomen Skin, External Approach (ICD-10-PCS; principal; 2017-12-06)
DX: T81.4XXA Infection following a procedure, initial encounter (principal); L02.211 Cutaneous abscess of abdominal wall; L02.216 Cutaneous abscess of umbilicus; L03.316 Cellulitis of umbilicus; Y83.8 Other surgical procedures as the cause of abnormal reaction of the patient, or of later complication, without mention of misadventure at the time of the procedure; Z90.721 Acquired absence of ovaries, unilateral; Y92.89 Other specified places as the place of occurrence of the external cause